=== PATIENT | female | born 1955 | race Caucasian/White ===

== ENCOUNTER → 2020-12-12 07:56 | Outpatient (CLI) | payer MEDICARE, OTHER, SELFPAY ==
[2020-12-12 10:00] LABS: COVID19 -Nasal RAPID Negative (Negative)
== END ==
PROVIDERS: Visit Provider Obstetrics & Gynecology
DX: Z01.812 Encounter for preprocedural laboratory examination (principal); Z20.822 Contact with and (suspected) exposure to COVID-19
CPT/HCPCS: 87635

== ENCOUNTER 2020-12-12 09:45 | Day surgery (SDC) | payer MEDICARE, OTHER, SELFPAY ==
[2020-12-07 10:41] VITALS: BMI 32.8
[2020-12-12] VITALS (7 sets, daily range): BP systolic 129–169; BP diastolic 57–86; PULSE 48–69; RESP 11–16; TEMP 36.9–37; O2SAT 96–99; BMI 33.7
--- NOTE | 2020-12-12 | PATH_ITS ---
[facility] Accession Number: [id number] . 01 Material submitted: . vagina - VAGINAL POLYP . 02 Diagnosis: Vaginal Polyp: Polyp contains a benign, inflamed, predominantly squamous-lined cyst with calcifications and acellular debris (cyst is approximately 2 cm in greatest dimension). Small regions of the cyst lining contain focal cytologic atypia suggestive of, but not diagnostic of, low grade squamous intraepithelial lesion / VAIN-1. These findings are not identified on the polyp surface. Please see comment. [facility] 12/15/2020 1426 Local . 02 Comment: The polyp (approximately 3.0 cm) contains a cyst (approximately 2.0 cm). The cyst lining demonstrates squamous metaplasia with small, patchy foci suggestive of possible tubal epithelium. There is inflammation and reactive change in the cyst lining with focal cytologic atypia suggestive of, but not diagnostic of, low grade squamous intraepithelial lesion / VAIN-1. These cytologic changes are very focal in the cyst lining and are not identified on the actual polyp surface. . The differential diagnosis is broad and includes a Mullerian cyst, a Bartholin gland cyst, and an epithelial inclusion cyst and, to some degree, depends on anatomic location and clinical presentation. . As part of routine engagement quality consultant, this case was also reviewed by Dr. Mir, who agrees with the interpretation. . 02 Electronically signed: . Radha Morrison MD, Pathologist NPI- [id number] . 01 Gross description: . The specimen is received in formalin, labeled vaginal polyp and consists of a 3.0 x 2.5 x 1.8 cm figueroa-pink mucosal polyp. The margin is inked blue. The specimen is serially sectioned and entirely submitted in cassettes A1-A6. ([id number]) /MRV 12/13/2020 1040 [facility] . 02 Pathologist provided ICD-10: N75.0 . 02 CPT . 832728 Performed at: 01 [facility] [address] [address], [place], [place] [id number] MD Anirudh Rome MD Phone: [phone] Performed at: [id number] [place], [place] [id number] MD Abbey Dash MD Phone: [phone]
[2020-12-12] MEDS: LACTATED RINGERS 1,000 ML 100 ML IV (10:29)
--- NOTE | 2020-12-12 11:17 | SUR.OPER ---
Lithotomy on padded OR bed, head on pillow, arms secured on padded arm boards at <90 degrees abduction. Legs secured in padded yellow fins stirrups.
[2020-12-12] MEDS: CEFAZOLIN 1 GM VIAL 2 GM IV (11:20)
[2020-12-12] MEDS: BUPIVACAINE 0.5% W/ EPI (PF) 30 ML VIAL INJ (11:22)
--- NOTE | 2020-12-12 11:38 | P.HP_ITS ---
History of Present Illness History of Present Illness Date Patient Seen: 12/12/20 Time Patient Seen: 10:45 Chief complaint: [facility] Narrative: Patient is a 65-year-old 1 para 1 who presents for a a vaginal lump excision. Patient History Medical History (Updated 12/10/20 @ 22:26 by Suzy Duarte) Chronic back pain Foot pain Hypertension Osteopenia Peripheral neuropathy Surgical History (Updated 11/21/20 @ 14:49 by Valerie Atkins MD) History of section Hx laparoscopic cholecystectomy Family & Social History Social History: household members spouse Tobacco & Substance use: Smoking Status Never smoker alcohol intake frequency a few times a month Substance Use Type does not use Meds Home Medications and Allergies Home Medications Medication Instructions Recorded Confirmed Type lisinopril 50 mg PO DAILY 11/21/20 12/12/20 History oxycodone 5 mg PO Q4H PRN #7 tab 12/12/20 Rx Allergies Allergy/AdvReac Type Severity Reaction Status Date / Time No Known Drug Allergies Allergy Unverified 11/21/20 14:29 Exam Vital Signs (past 8 hours): - 12/12/20 10:31 12/12/20 11:31 Temperature 98.5 F 98.6 F Pulse Rate 69 60 Respiratory Rate 16 12 Blood Pressure 169/86 H 142/84 H Pulse Oximetry 99 96 Oxygen Delivery Method Room Air Narrative Exam Narrative: HEENT: No thyromegaly, no anterior cervical or supraclavicular lymphadenopathy. Lungs:Clear to auscultation bilaterally, no wheezes. Cardiovascular: Regular rate and rhythm, no murmurs, rubs, or gallops. Abdomen: Well-healed Pfannenstiel scars. No hepatosplenomegaly. No masses palpable. External genitalia: Normal Vagina: 2.5 cm x 2.5 cm right vaginal wall polyp Cervix: Normal Bimanual exam: 5 Week size uterus. Mobile. Assessment & Plan Assessment & Plan narrative: Assessment: 65-year-old 1 para 1 with a right vaginal wall polyp Plan: Excision of right vaginal wall polyp The risks, benefits, and alternatives to the procedure were explained to the patient. The risks including bleeding and infection. She understands these risks and agrees to proceed. A full par Q was held and consent form was signed COVID-19 COVID-19 status: Negative Result date/Date tested (Pos, Neg/Pending): 12/12/20 Time Spent With Patient Time with patient: less than 15 minutes
[2020-12-12] MEDS: OXYCODONE IR 5 MG TABLET PO (11:50)
[2020-12-12] MEDS: ACETAMINOPHEN 325 MG TABLET 975 MG PO (11:51)
--- NOTE | 2020-12-12 12:20 | PM.PREOP ---
Pre-operative Note COVID-19 COVID-19 status: Negative Result date/Date tested (Pos, Neg/Pending): 12/12/20 Interval Note History & Physical reviewed/Exam performed by Physician: Yes Changes to H&P: No H&P completed within 30 days and has changed as indicated here:: 12/12/20
--- NOTE | 2020-12-12 12:20 | PM.GYNOP.1 ---
Operative Date/Time/Diagnoses Date of procedure: 12/12/20 Time of procedure: 12:21 Pre-op diagnosis: Right vaginal wall polyp Post-op diagnosis: same Procedure & Clinicians Procedure: Procedures Operation Date: 12/12/20 10:45 Actual Procedures Side Surgeon p Excision Vaginal of Mass Valerie Atkins MD Indications: Right vaginal wall polyp Surgeon: Valerie Atkins Anesthesia Type: General (LMA) and Local Operative Notes Findings: 3.5 cm x 2.5 cm polyp on a stalk originating from the right vaginal wall, approximately half way back towards the cervix Closure Type: primary Specimen(s): other (Vaginal wall polyp) Estimated blood loss (mL): 2 Blood products transfused: none Procedure in detail: After informed consent was obtained, patient was taken to the operating room where she was placed in the dorsal supine position. After adequate LMA general anesthesia was achieved, she was placed in the dorsal lithotomy position, and prepped and draped in the usual sterile fashion. A time-out was performed. A bivalve speculum was placed into the vagina. There was a 3.5 x 2.5 cm vaginal polyp on a stalk originating from the right vaginal wall. 6 cc of 0.5% Marcaine with epinephrine were injected at the base of the stalk. Using the Bovie, the polyp was excised at the base. The Bovie was used for hemostasis on the vaginal wall. The bivalve speculum was removed from the vagina. Sponge, lap, and instrument counts were correct x2. The patient tolerated the procedure well, and was taken to PACU in stable condition. Complications: none Post-operative Condition: stable Disposition: PACU Plan for aftercare: Home after recovery
== END 2020-12-12 12:28 | disposition home or self-care (01) ==
PROVIDERS: Referring Provider Obstetrics & Gynecology; Visit Provider Obstetrics & Gynecology
PROC: (CPT 57135; principal; 2020-12-12 10:45)
DX: N89.8 Other specified noninflammatory disorders of vagina (principal); I10 Essential (primary) hypertension; Z20.822 Contact with and (suspected) exposure to COVID-19
CPT/HCPCS: 57135; 87635; C9803; J0690; J1100; J2250; J2405; J2704; J3010

== ENCOUNTER → 2021-01-10 10:13 | Outpatient (CLI) | payer MEDICARE, OTHER, SELFPAY ==
[2021-01-10 20:48] LABS: Add Manual Diff / Slide Review NO; Basophils Absolute Auto 100 /uL (0-100); Basophils Percent Auto 1.3 % (0-2); Eosinophils Absolute Auto 200 /uL (0-450); Hematocrit 38.6 % (36-46); Hemoglobin 12.8 g/dL (12.0-16.0); Lymphocytes Absolute Auto 2400 /uL (1100-4500); Mean Corpuscular Hemoglobin 30.9 PG (26-34); Mean Corpuscular Volume 93.5 fL (80-100); Monocytes Absolute Auto 500 /uL (0-900); Monocytes Percent Auto 6.9 % (3-14); Neutrophils Absolute Auto 3700 /uL (1500-7000); Neutrophils Percent Auto 53.8 % (50-75); Platelet Count 327 X10^3/uL (150-400); Red Blood Cell Count 4.13 X10^6/uL (4.0-5.2); Red Cell Distribution Width 12.8 % (11.6-14.8); White Blood Cell Count 6.8 X10^3/uL (4.5-11.0)
[2021-01-10 21:02] LABS: Alanine Aminotransferase 43 IU/L (<35); Albumin 3.9 g/dL (3.5-5.0); Albumin Globulin Ratio 1.3 (1.0-2.8); Alkaline Phosphatase 84 U/L (38-126); Aspartate Aminotransferase 33 IU/L (14-36); BUN Creatinine Ratio 24.3 (6-22); Bilirubin Total 0.6 mg/dL (0.2-1.3); Blood Urea Nitrogen 17 mg/dL (7-17); Calcium 9.7 mg/dL (8.4-10.2); Carbon Dioxide 24 mmol/L (22-32); Chloride 106 mmol/L (98-107); Cholesterol 231 mg/dL (140-199); Estimated Glomerular Filt Rate > 60.0 mL/min (>60); Globulin 2.9 g/dL (1.7-4.1); Glucose 114 mg/dL (80-110); HDL Cholesterol 63 mg/dL (40-60); HEMOLYSIS < 15 (0-50); LDL Cholesterol Calculated 147 mg/dL (<100); Potassium 4.3 mmol/L (3.4-5.1); Sodium 137 mmol/L (137-145); Total Protein 6.8 g/dL (6.3-8.2); Triglycerides 107 mg/dL (35-150)
[2021-01-10 21:06] LABS: Creatinine Urine Random 114.9 mg/dL
[2021-01-10 21:07] LABS: Microalbumi Creatinin Ratio Ur 20.8 ug/mg CR (<30); Microalbumin Urine Random 2.4 mg/dL (0-1.6)
[2021-01-10 21:22] LABS: Hemoglobin A1C% w Est Avg Glu 5.7 % (4.0-6.0)
[2021-01-10 21:51] LABS: Vitamin B12 > 1000 pg/mL (239-931)
== END ==
PROVIDERS: PCP Physician Assistant; Visit Provider Physician Assistant
DX: G62.9 Polyneuropathy, unspecified (principal); R73.01 Impaired fasting glucose; I10 Essential (primary) hypertension
CPT/HCPCS: 80053; 80061; 82043; 82570; 82607; 83036; 85025

== ENCOUNTER → 2022-01-04 12:46 | Outpatient (CLI) | payer MEDICARE, OTHER, SELFPAY ==
--- NOTE | 2022-01-04 | DI.CT.S_ITS ---
PROCEDURE: CT LUMBAR SPINE WO CON INDICATIONS: SPINAL STENOSIS OF LUMBAR REGION TECHNIQUE: Noncontrast 3 mm thick sections acquired from the T12 level to the sacrum. Sagittal and coronal reformats were constructed. In this patient direct axial 0.8 mm images were reformatted. For radiation dose reduction, the following was used: automated exposure control. COMPARISON: [facility] Outside Film, MR, MR LUMBAR SPINE WITHOUT CONTRAST, 06/26/2021, 18:30. [facility] Outside Film, RG, SPINE LUMB BENDING MIN 4VW, 08/22/2021, 14:14. FINDINGS: Image quality: Excellent. Bones: No acute vertebral body compression fractures. No suspicious lytic or blastic bony lesions. No pars defects. T12-L1: Normal. L1-L2: Normal. L2-L3: Normal. L3-L4: The disc height is well preserved. Moderate generalized disc bulge is seen. Moderate facet joint hypertrophy is seen. Mild to moderate bilateral neural foraminal narrowing can be seen. Moderate central canal narrowing is seen. L4-L5: The disc height is well preserved. Moderate generalized disc bulge is seen. There is a superimposed central disc protrusion. Mild bilateral neural foraminal narrowing is seen. Moderate central canal narrowing is seen. L5-S1: Mild retrolisthesis is seen at this level. At least moderate loss of disc height and disc signal can be seen. Vacuum disc phenomenon is seen at this level. Bridging endplate osteophytes are seen on the right and on the left. Posteriorly projected endplate osteophytes are seen. Moderate generalized disc bulge is seen. Moderate bilateral neural foraminal narrowing is seen. Mild central canal narrowing is seen. Soft tissues: No retroperitoneal masses or hematomas. Visualized aorta is normal in caliber. Atherosclerotic calcification is noted. Bilateral kidney peripelvic cysts can be seen. A normal appendix is incidentally noted. IMPRESSION: Multiple levels of lumbar spine degenerative change are seen, which are worst at the L5-S1 level. The degenerative changes are similar to the prior outside MRI examination. Dictated by: Prasanna Rosado M.D. on 01/04/2022 at 12:32 Approved by: Prasanna Rosado M.D. on 01/04/2022 at 12:36
== END ==
PROVIDERS: PCP Physician Assistant; Referring Provider Orthopaedic Surgery Orthopaedic Surgery of the Spine; Visit Provider Orthopaedic Surgery Orthopaedic Surgery of the Spine
DX: M47.817 Spondylosis without myelopathy or radiculopathy, lumbosacral region (principal); M47.816 Spondylosis without myelopathy or radiculopathy, lumbar region; M48.061 Spinal stenosis, lumbar region without neurogenic claudication
CPT/HCPCS: 72131

== ENCOUNTER → 2022-01-10 11:09 | Outpatient (CLI) | payer MEDICARE, OTHER, SELFPAY ==
[2022-01-10 19:18] LABS: Add Manual Diff / Slide Review NO; Basophils Absolute Auto 100 /uL (0-100); Basophils Percent Auto 1.1 % (0-2); Eosinophils Absolute Auto 100 /uL (0-450); Eosinophils Percent Auto 1.6 % (2-4); Hematocrit 37.6 % (36-46); Hemoglobin 12.9 g/dL (12.0-16.0); Lymphocytes Absolute Auto 2800 /uL (1100-4500); Lymphocytes Percent Auto 41.7 % (25-40); Mean Corpuscular HGB Conc 34.5 % (30-36); Mean Corpuscular Hemoglobin 31.7 PG (26-34); Monocytes Absolute Auto 500 /uL (0-900); Monocytes Percent Auto 6.9 % (3-14); Neutrophils Absolute Auto 3200 /uL (1500-7000); Neutrophils Percent Auto 48.7 % (50-75); Platelet Count 304 X10^3/uL (150-400); Red Blood Cell Count 4.08 X10^6/uL (4.0-5.2); Red Cell Distribution Width 12.7 % (11.6-14.8); White Blood Cell Count 6.6 X10^3/uL (4.5-11.0)
[2022-01-10 19:26] LABS: BUN Creatinine Ratio 26.2 (6-22); Blood Urea Nitrogen 16 mg/dL (7-17); Calcium 9.2 mg/dL (8.4-10.2); Carbon Dioxide 28 mmol/L (22-32); Chloride 104 mmol/L (98-107); Estimated Glomerular Filt Rate > 60 mL/min (>60); Glucose 111 mg/dL (80-110); HEMOLYSIS 16 (0-50); Potassium 4.9 mmol/L (3.4-5.1); Sodium 139 mmol/L (137-145)
== END ==
PROVIDERS: PCP Physician Assistant; Visit Provider Physician Assistant
DX: R73.01 Impaired fasting glucose (principal); Z01.818 Encounter for other preprocedural examination
CPT/HCPCS: 80048; 85025

== ENCOUNTER → 2022-02-01 07:11 | Outpatient (CLI) | payer MEDICARE, OTHER, SELFPAY ==
[2022-02-01 20:11] LABS: COVID19 - ORCAS (NP or Nasal) Negative (Negative)
== END ==
PROVIDERS: PCP Physician Assistant; Visit Provider Family Medicine
DX: Z20.822 Contact with and (suspected) exposure to COVID-19 (principal); Z01.812 Encounter for preprocedural laboratory examination
CPT/HCPCS: C9803; U0003

== ENCOUNTER 2022-02-04 07:35 | Inpatient (IN) | payer MEDICARE, OTHER, SELFPAY ==
[2022-01-29 13:36] VITALS: BMI 30.2
[2022-02-04] VITALS (13 sets, daily range): BP systolic 121–153; BP diastolic 64–87; PULSE 73–109; RESP 12–20; TEMP 36–36.7; O2SAT 96–98; BMI 30.2
[2022-02-04] MEDS: LACTATED RINGERS 1,000 ML 42 ML IV ×2 (08:07→10:50)
[2022-02-04] MEDS: ACETAMINOPHEN 325 MG TABLET 650 MG PO ×2 (08:07→23:02)
--- NOTE | 2022-02-04 09:43 | PM.PREOP ---
Pre-operative Note COVID-19 COVID-19 status: Negative Result date/Date tested (Pos, Neg/Pending): 02/03/22 Criteria for continued procedure: Expected advancement of disease process, Possibility delay results in more complex future surgery or treatment, Increased loss of function, Continuing or worsening of significant or severe pain and Deterioration of the patient's condition or overall health Interval Note History & Physical reviewed/Exam performed by Physician: Yes Changes to H&P: No H&P completed within 30 days and has changed as indicated here:: PMHx and PSHx updated as below: HISTORY ITEM ONSET Chronic back pain Foot pain HTN (hypertension) Osteopenia Peripheral neuropathy Sciatica LLE HISTORY ITEM ONSET History of section History of gynecologic surgery Excision of vaginal mass 12/12/20 Hx laparoscopic cholecystectomy RELATIVE PROBLEM ONSET AGE COMMENT No Data for this History Type. SOCIAL HISTORY ITEM COMMENT household members spouse Smoking Status Never smoker alcohol intake current
[2022-02-04] MEDS: CEFAZOLIN 2 GM/20 ML SYRINGE IV ×2 (10:25→18:24)
--- NOTE | 2022-02-04 10:43 | SUR.OPER ---
Prone on spine table, head in foam head support, padded chest and pelvic supports, gel pad at knees, lower legs supported by pillows; nipples, genitalia and toes free of pressure, arms secured on foam padded arm boards at <90 degrees abduction. Tape over blanket at thigh secured to table. POSITION APPROVED BY SURGEON AND ANESTHESIA
[2022-02-04] MEDS: BUPIVACAINE 0.5% (PF) 30 ML, EPINEPHrine 0.15 MG INJ (10:54)
[2022-02-04] MEDS: BUPIVACAINE LIPOSOME 266 MG/20 ML VIAL INJ (10:55)
--- NOTE | 2022-02-04 13:12 | P.OP_ITS ---
Operative Date/Time/Diagnoses Date of procedure: 02/04/22 Time of procedure: 10:00 Pre-op diagnosis: 1. L4-5, L5-S1 spinal stenosis 2. L4-5, L5-S1 spondylosis with radiculopathy Post-op diagnosis: same Procedure & Clinicians Procedure: 1. L4-5, L5-S1 Postero-lateral and posterior interbody fusion 2. L4-5, L5-S1 interbody cage placement. 3. L4-5, L5-S1 decompressive laminectomy with bilateral facetecomies 4. L4-5, L5-S1 Posterior segmental instrumentation 5. Belle of bone marrow from iliac crest 6. Utilization of microsurgical technique and operating microscope 7. Utilization of robotic assisted navigation Same procedure as scheduled: Yes Indications: Patient has been having chronic back pain and worsening lumbar radiculopathy. Patient failed multiple conservative management with worsening pain weakness and numbness in her lower extremity. Patient has been having difficulty performing activity of daily living. After discussing risks benefits of treatment options, patient elected proceed with surgery. Surgeon: Antonino Cherry Hosiery Pairer: Alycia Stephens Click Yes if Unassisted: No Anesthesia Type: General Operative Notes Closure Type: primary Specimen(s): none sent Prosthetic devices, grafts, tissues, transplants, or devices: Globus CREO MIS screws, Rise cages Applied: catheter Estimated Blood Loss (mL): 100 Blood products transfused: none Procedure in detail: Patient was seen in the preoperative area. Risks and benefits of the surgery was discussed with the patient. Informed consent was obtained from the patient and placed in the chart. Surgical site was marked. Patient was taken to the operative room. General anesthesia was administered. Prophylactic antibiotic was given to the patient less than 30 min before the incision was made. Patient was placed into a prone position on the Kevin table. Patient's back was then prepped and draped in the sterile fashion. Time-out was performed at this time. After patient was prepped and draped, patient's PSIS was palpated and marked bilaterally. Small 1 cm incision was made over the PSIS for placement of the reference probes. Two trocar was placed into the PSIS 1 on each side. The reference probe was attached to the trocar of the reference apparatus. At this time the C-arm imaging was used to confirm AP and lateral of L4-L5, L5- S1 vertebrae and merged the C-arm imaging using the [employer] robotic navigation system with the CT of the lumbar spine. After successful merging was completed and confirmed, skin marker was used to shivani out the skin incision using the [employer] robotic arm. Bilateral incision was made at this time. Pre templated trajectory was used and guided using the [employer] robotic navigation system for bilateral L4, L5, S1 pedicle screw placement. This was done by using the robotic arm to guide the high-speed bur to make a cortical entry point. Next a drill was placed also using the robotic arm and guided using the navigation system drilling partially through bilateral L4, L5 and S1 pedicles. Next L4, L5, S1 pedicle screws it was pre templated and measured was placed onto the power snaker tractor driver and inserted into the pedicles bilaterally. After all 6 screws were placed C-arm imaging was taken of both AP and lateral to confirm the placement. Excellent placement of the screws were confirmed and a matched precisely with the pre planned screw placement using the navigation system. MARs retractor was inserted using [employer] guidence. Globus MARS retractors was placed inside the incision and docked onto the L4 and L5 lamina. Using microsurgical technique and operating microscope, a L4, L5 laminectomy and L4-5, L5-S1 facetectomy was performed using a Kerrison rongeur. Patient was found have severe lateral recess and neural foramen stenosis which was fully decompressed after the laminectomy facetectomy. More than 75% of the facets were removed during the process of decompression rendering L4-5, L5-S1 level grossly unstable and required a fusion procedure at the same time. The disc space at L4-5, L5-S1 was identified, and a total diskectomy was performed at L4- 5, L5-S1 level. The endplates were decorticated using a rasp and shaver. The total diskectomy and decortication was performed at L4-5, L5-S1 level in order to to accomplish a L4-5, L5-S1 fusion. The local bone from the laminectomy and facetectomy was saved for local bone grafting. After the total diskectomy and decortication was completed, Trifecta bone graft material was combined with local bone that was harvested earlier. At this time, a separate skin is incision was made over the iliac crest. A Jamshidi needle was inserted into the iliac crest through a separate skin incision. 5 cc of bone marrow aspiration was obtained through the separate skin incision using a Jamshidi needle from the iliac crest. The bone marrow aspiration was combined with local bone and the Trifecta bone grafting material. The bone grafting material was placed into the L4-5, L5-S1 interbody space along with a expandable cage. The cage was expanded to its maximum height using the torque limiting screwdriver. The disc preparation as well as the cage insertion were also performed under navigation guidance. After the cage was placed, AP and lateral C-arm imaging was taken to confirm placement of the cage and excellent position was confirmed. Globus MARS retractor was inserted and docked onto the L4-5, L5-S1 posterolateral gutter on the right side. Using the power drill, posterior- lateral decortication was performed at L4-5, L5-S1 level until bleeding cortical bone was identified. The remaining bone grafting material was placed into the L4-5, L5-S1 posterior lateral gutter he order to accomplish posterolateral fusion at the L4-5, L5-S1 level. At this time the tulips were attached to the L4, L5, S1 pedicle screw shanks. After measuring the length of the rods, they were inserted into the tulips of the pedicle screws and locked in place using locking caps and torque limiting screwdriver bilaterally. Total 6 caps and 2 titanium rods was used in order to complete the posterior instrumentation construct. After all the hardware was placed, and confirmed with AP and lateral C-arm imaging, the wound was then irrigated with sterile normal saline and packed with Ray-Veronica gauze for 3 min to accomplish hemostasis. After the gauze was removed the deep fascia was closed with #1 Vicryl suture. The subcutaneous layer was closed with 2-0 Vicryl. The skin was closed with skin dmitry. Patient tolerated the procedure well. There were no complications. Neuro monitoring system was used to monitor patient's neurologic status throughout entire procedure. There was no disturbance of the neural monitoring signals throughout the case. Complications: none Post-operative Condition: stable Disposition: PACU Plan for aftercare: Admit to inpatient hospital
[2022-02-04] MEDS: SODIUM CHLORIDE 0.9% 1,000 ML 100 ML IV (14:42)
--- NOTE | 2022-02-04 17:21 | PC.NURSE ---
Pt arrived to the unit around 1425 from OR. Pt is AxOx4, needs 1-2 person assistance but pt hasn't gotten up yet. VSS, pt denies pain. No skin issues except incision site and it has post op dressing. Drsg C/D/I. Pt has low appetite. Pt has rico catheter and it is draining yellow urine. No other changes.
[2022-02-04] MEDS: DOCUSATE 100 MG CAPSULE PO (20:44)
[2022-02-04] MEDS: VIT C/E/ZN/COPPR/LUTEIN/ZEAXAN CAPSULE 1 CAP PO (20:45)
[2022-02-04] MEDS: SENNOSIDES 8.6 MG TABLET 17.2 MG PO (20:45)
[2022-02-04] MEDS: hydrOXYzine pamoate 25 MG CAPSULE PO (23:02)
[2022-02-05] VITALS (8 sets, daily range): BP systolic 99–144; BP diastolic 35–66; PULSE 65–87; RESP 15–18; TEMP 37–38.7; O2SAT 95–100
[2022-02-05] MEDS: SODIUM CHLORIDE 0.9% 1,000 ML 100 ML IV (00:41)
[2022-02-05] MEDS: CEFAZOLIN 2 GM/20 ML SYRINGE IV (02:27)
[2022-02-05 05:58] LABS: Hematocrit 31.3 % (36-46); Hemoglobin 10.8 g/dL (12.0-16.0)
--- NOTE | 2022-02-05 06:35 | PC.NURSE ---
Pt declining pain medications, only took tylenol and vistaril. Pt was reposition twice during the shift (declined being turn more than that). CMS is intact as well as dressing to back incision. IVF discontinue this am. Pt concern about getting out of bed this morning with PT and about seating in her car for more than 1 hour due to [place] ride.
--- NOTE | 2022-02-05 07:42 | P.PN_ITS ---
Subjective Subjective Date Patient Seen: 02/05/22 Time Patient Seen: 07:42 Interval history: Pain is moderate to severe. Denies fever chills. No nausea vomiting. Exam Vital Signs (past 8 hours): - 02/05/22 03:00 Temperature 98.6 F Pulse Rate 73 Respiratory Rate 18 Blood Pressure 136/63 Pulse Oximetry 96 Oxygen Flow Rate 0 Oxygen Delivery Method Room Air Oxygen Flow Rate 0 Narrative Exam Narrative: 66-year-old female resting comfortably in bed in no apparent distress. D ressing is Clean, dry, intact. . Motor functions intact bilateral lower extremities. Sensation is grossly intact to light touch bilateral lower extremities. Const General: comfortable Resp Effort & Inspection: normal respiratory effort and able to speak in complete sentences Objective Labs Result Diagrams: 02/05/22 05:22 Labs: Laboratory Results - last 24 hr 02/05/22 05:22 Hgb 10.8 L Hct 31.3 L PFSH Medical History Chronic back pain Foot pain HTN (hypertension) Osteopenia Peripheral neuropathy Sciatica Surgical History History of section History of gynecologic surgery (12/12/20) Hx laparoscopic cholecystectomy Social History household members: spouse Smoking Status: Never smoker alcohol intake: current Assessment & Plan Post-op Postoperative Procedures: Procedures Operation Date: 02/04/22 09:15 Actual Procedure Side Surgeon p L4-5, L5-S1 TLIF w. posterior instrumentation -Robot Antonino Cherry MD Postoperative day: 1 Postoperative status: doing well and marginal pain control Postoperative plan: routine post-op care Postoperative plan narrative: Mobilize with physical therapy, limit bending, lifting, twisting multimodal pain management disposition, home 1-2 days Quality VTE Deep Vein Thrombosis/Pulmonary Embolism Present on Admission: No
[2022-02-05] MEDS: ACETAMINOPHEN 325 MG TABLET 650 MG PO ×3 (09:03→22:06)
[2022-02-05] MEDS: DOCUSATE 100 MG CAPSULE PO (09:03)
[2022-02-05] MEDS: lisinopriL 10 MG TABLET PO (09:04)
[2022-02-05] MEDS: VIT C/E/ZN/COPPR/LUTEIN/ZEAXAN CAPSULE 1 CAP PO ×2 (09:04→19:57)
--- NOTE | 2022-02-05 10:55 | OT.IPNOTE ---
Pt just got back in bed with nursing, dizzy and low BP per nursing. Pt not wanting to get up at this time. Able to get prior level of care and home set-up from the pt. To check on the pt later.
--- NOTE | 2022-02-05 10:58 | CM.DPNOTE ---
Discharge Planning Note: Case received, EMR reviewed. Met with patient in her room, introduced self and role. Payer: Medicare, [facility] PCP: Brittany Stiles 66 year old female who underwent TLIF yesterday, 02/04/22, by Dr Cherry. She is sitting on the side of the bed dangling her legs when this DCP entered. She speaks softly and states she can't move legs although she is. PT will work with her today. She and her spouse live on [address] and are retired. She states she is normally independent in ADLs and drives. Plan: Per surgery notes she will be discharged home in 1-2 days. Follow for needs. Gladys Pratt RN/DCP
--- NOTE | 2022-02-05 11:00 | PT.IIE ---
Current Diagnoses Other spondylosis with radiculopathy, lumbar region (02/04/22) Spinal stenosis, lumbar region with neurogenic claudication (02/04/22) Surgery Performed Operation Date: 02/04/22 09:15 Actual Procedures p L4-5, L5-S1 TLIF w. posterior instrumentation -Robot - Antonino Cherry MD Surgical History (Last Reviewed 02/05/22 @ 07:43 by Andrea Maya PA-C) History of section History of gynecologic surgery (12/12/20) Hx laparoscopic cholecystectomy Medical History (Last Reviewed 02/05/22 @ 07:43 by Andrea Maya PA-C) Chronic back pain Foot pain HTN (hypertension) Osteopenia Peripheral neuropathy Sciatica Physical Therapy Inpatient Evaluation/Re-Eval M1 PT/OT-IP Prior Functional Status Start: 02/05/22 12:05 Freq: NEEDED Status: Active Protocol: Document 02/05/22 11:00 AB (Rec: 02/05/22 12:58 [facility] Medical Review Prior Functional Status Medical History Reviewed Yes Communication able to make needs known but needs time to answer questions or follow directions Mobility and Gait pt stated that she is modified independent with all mobilities and ambulation without AD but occasionally uses walkign sticks for outdoor mobility Social History Household Members spouse Living Arrangements Apartment/Condo Number of Floors (Floors) Two Floors Number of Stairs To Enter/Railing? pt stays on main level of the house 4 steps wide bilateral rails Home Environment Standard Height Toilet,Walk in Shower Home Equipment Hand Held Shower M2 PT-IP Current Condition Start: 02/05/22 12:05 Freq: NEEDED Status: Active Protocol: Document 02/05/22 11:00 AB (Rec: 02/05/22 12:58 AB [email or web address]) Physical Therapy Current Condition Current Condition Evaluation Date 02/05/22 Treatment Diagnosis s/p L4-5, L5S1 TLIF; difficulty in walking Onset Date 02/04/22 M3 PT-IP Subjective Start: 02/05/22 12:05 Freq: NEEDED Status: Active Protocol: Document 02/05/22 11:00 AB (Rec: 02/05/22 12:58 AB [email or web address]) Subjective Physical Therapy Visit Type Type Initial Evaluation Visit Start Time 11:00 Visit Stop Time 11:30 Total Visit Minutes 30 Number of DECKHAND FISHING VESSEL Visits 0 Physical Therapy Visit Comments Patient Comments agreeable to do PT M4 PT-IP Mobility and Gait Start: 02/05/22 12:05 Freq: NEEDED Status: Active Protocol: Document 02/05/22 11:00 AB (Rec: 02/05/22 12:58 AB [email or web address]) PT-Bed Mobility Assessment Rolling Type of Rolling Log Rolling Level of Assist Maximal Assistance Supine to Sit Supine to Sit Maximum Assistance,1 Person Assistance Sit to Supine Sit to Supine Maximum Assistance,1 Person Assistance PT-Transfer Assessment Sit to and From Stand Sit to and from Stand Maximum Assistance,1 Person Assistance Equipment Transfer Assistive Device Gait Belt,Front Wheeled Walker Orthotic/Prosthetic Devices or Brace: No Comments Mobility Comments educated pt regarding back precautions and log roll bed mobility. BP in supine: 99/50 completed supine to sit max A and max cues. Able to sit on EOB min A. no c/o dizziness/ lightheaded/nausea. pt needs one step cues with all tasks. BP in sittin/58. completed sit to stand max A and max cues. Very unsteady initial standing with posterior trunk lean and (+) BLE shaking. assisted pt to sit back down. NAC came in to assist. completed sit to stand again max A and able to stand with max A and max cues. No c/o dizziness/ lightheadedness. attempted to obtain BP in standing but pt has to sit back down. max A for controlled descent. BP in stting after standin/47. assisted pt to supine max A and max cues. total A x 2 for positioning in bed. call light and table placed within reach. BP at end of PT session: 104/44. informed nurse regarding BP. Gait Assessment Comments Gait Comments unable at this time PT-Balance Assessment Sitting Balance and Reactions Static Sitting Balance Ability Fair Dynamic Sitting Balance Ability Poor Standing Balance and Reactions Static Standing Balance Ability Poor Dynamic Standing Balance Ability Poor Device Used FWW M5 PT-IP Objective Assessments Start: 02/05/22 12:05 Freq: NEEDED Status: Active Protocol: Document 02/05/22 11:00 AB (Rec: 02/05/22 12:58 AB [id number]) Orientation Orientation/Cognition Level of Alertness Alert Orientation Name,Age,Situation Language Function Ability No Deficits Noted Safety Awareness Decreased Safety Awareness Memory Description Short Term Impaired Gross Range of Motion Lower Extremity ROM Assessment Within Functional Limits Strength Lower Extremity Strength Assessment Bilaterally Impaired Comments Strength Comments RLE: 3+/5 LLE: 3/5 Coordination Assessment Gross Coordination Gross Coordination WNL Sensation Assessment Sensation Gross Sensation Right LE Impaired,Left LE Impaired Sensation Description Numbness Comments Sensation Comments c/o numbness on BLE from hips down to feet Muscle Tone Muscle Tone WNL Yes M6 PT-IP Treatment Start: 02/05/22 12:05 Freq: NEEDED Status: Active Protocol: Document 02/05/22 11:00 AB (Rec: 02/05/22 12:58 [id number]) Physical Therapy Treatment Education Education Provided Precautions,Weight Bearing Status,Post-Op Packet,Safety M7 PT-IP Assessment and Plan Start: 02/05/22 12:05 Freq: NEEDED Status: Active Protocol: Document 02/05/22 11:00 AB (Rec: 02/05/22 12:58 [email or web address]) PT Summary Assessment and Plan Potential Rehabilitation Potential Fair Status of Condition at Evaluation Evolving Summary Impairments Pain,ROM,Strength,Balance, Coordination,Sensation,Tone, Cognition,Bed Mobility, Transfers,Gait,Activity Tolerance Assessment Summary pt requiring max A and max cues and unable to complete a transfer or ambulate at this time. BP with decrease in BP in standing to 89/44 but also presents with BLE weakness and numbness affecting mobility. at this time, pt may require SNF rehab to improve strength and functional mobility independence. will continue to assess progress. Goals Bed Mobility Goal Standby Assistance Transfer Goal Standby Assistance,Front Wheeled Walker Gait Goal Standby Assistance,Front Wheel Walker Gait Distance 200 Other Goals up/down 4 steps 1 rail SBA Days to Meet Goals 5 Frequency of Treatment Frequency Of Treatment Twice a Day Treatment Plan Physical Therapy Treatment Plan Bed Mobility Training,Transfer Training,Gait Training, Therapeutic Exercise,Balance Retraining,Post Op Education, Discharge Planning,Hot or Cold Pack,Neuromuscular Re-ed, Coordination Retraining,Manual Therapy Precautions Lumbar Precautions Log Roll,No Twisting,Limit Bending,Lifting Restriction of 10 lbs,Gait Belt above Incisional Area Recommendations To Nursing Amount of Assist Needed PT/OT Assist Only Discharge Recommendations PT Discharge Recommendations Home with / Assist Available,Home Health,SNF Rehab,Home vs SNF Transportation Needs at Discharge Private Vehicle,Wheelchair/ Cabulance
--- NOTE | 2022-02-05 11:15 | OT.IPNOTE ---
Pt just got back on bed with nursing, got a little dizzy and low BP, pt requesting to be seen later for OT eval. Able to get prior level of care and history from the pt.
--- NOTE | 2022-02-05 12:44 | OT.IPNOTE ---
Attempted to see pt for OT again, pt asleep and per nursing having low BP to hold pt at this time.
--- NOTE | 2022-02-05 13:10 | CM.DANOTE ---
Addendum entered by Halina Pratt R.N. 02/05/22 15:37: Discharge Planning cont. Spoke with [facility] at [facility], they can accept in 2 days but new requirement is that she has a 2nd booster which she would have to receive here. I notified patient of this and she states last booster she became hypotensive. Called [facility], spoke with [facility] and they could possibly admit in a few days without a 2nd booster if they have a private room to quarantine patient for a week which is standard. Faxed clinicals. [facility]. P: Follow up with SNFs, (or if patient to return home) follow patient progress with PT. DESIRE Original Note: Initial Discharge Planning Note: Case received, EMR reviewed. Met with patient in her room, introduced self and role. Payer: Medicare, [facility] PCP: Brittany Stiles 66 year old female who underwent TLIF yesterday, 02/04/22, by Dr Cherry. She is sitting on the side of the bed dangling her legs when this DCP entered. She speaks softly and states she can't move legs although she is. PT will work with her today. She and her spouse live on [address] and are retired. She states she is normally independent in ADLs and drives. Plan: Per surgery notes she will be discharged in 1-2 days. Depending on her recovery: SNF rehab vs home with Home Health. ([facility] Gladys Pratt RN/JOSEP Discharge Planning/Care Management CM Discharge Assessment Start: 02/05/22 13:00 Freq: Status: Active Protocol: Document 02/05/22 13:00 (Rec: 02/05/22 13:03 [id number]) Discharge Planning Assessment Assigned Freelance Art Director Gladys Pratt RN, JOSEP Advance Directives? Yes Advance Directives on File No History Provided By Patient Prior Living Arrangements House Household Members spouse Type of transporation used prior to Drives own vehicle admit Independent with ADL's Yes Is patient alert and oriented? Yes Needs Assistance With Home Chores / Shopping Caregiver for Another No DME Already Rented / Owned FWW / Walker Barriers to Discharge No Discharge Plan Home Transportation Arrangement Spouse to transport patient back to [place] when ready for dc. Referrals Initiated None needed Whiteboard Updated in Patient Room with Yes name and ext. # of Freelance Art Director Review Status In Process Next Review Type Continued Stay Review Document 02/05/22 13:05 (Rec: 02/05/22 13:05 [id number]) Discharge Planning Assessment Assigned Freelance Art Director Gladys Pratt RN, DCP Advance Directives? Yes Advance Directives on File No History Provided By Patient Prior Living Arrangements House Household Members spouse Type of transporation used prior to Drives own vehicle admit Independent with ADL's Yes Is patient alert and oriented? Yes Needs Assistance With Home Chores / Shopping Caregiver for Another No DME Already Rented / Owned FWW / Walker Barriers to Discharge No Discharge Plan Home Transportation Arrangement Spouse to [facility] ready for [place]. Referrals Initiated None needed Whiteboard Updated in Patient Room with Yes name and ext. # of Freelance Art Director Review Status In Process Next Review Type Continued Stay Review Document 02/05/22 13:09 (Rec: 02/05/22 13:10 [id number]) Discharge Planning Assessment Assigned Freelance Art Director Gladys Pratt RN, DCP Advance Directives? Yes Advance Directives on File No History Provided By Patient Prior Living Arrangements House Comment [place] Household Members spouse Type of transporation used prior to Drives own vehicle admit Independent with ADL's Yes Is patient alert and oriented? Yes Needs Assistance With Home Chores / Shopping Caregiver for Another No DME Already Rented / Owned FWW / Walker Patient/Family Preference Home with Home Health Comment HH vs SNF Barriers to Discharge No Discharge Plan Home Transportation Arrangement [facility]. Referrals Initiated None needed Whiteboard Updated in Patient Room with Yes name and ext. # of Freelance Art Director Review Status In Process Next Review Type Continued Stay Review Pre-Anesthesia Assessment Start: 01/29/22 13:36 Freq: Status: Active Protocol: Document 01/29/22 13:36 CAB (Rec: 01/29/22 13:45 CAB [id number]) Pre-Anesthesia Assessment Preferred Name Anna Patient Information Reviewed Via Phone Assessment Assessment Completed With Patient Diagnostic Results BMP/CMP,CBC,EKG Comment Labs @ [facility] 01/10/22, ECG 01/10/22 scanned, COVID screen-needs to schedule Primary Care Provider None Seen Specialist in Last 12 Months Yes Specialist Seen Orthopedist Primary Language Greenlandic Supervisor Liquefaction Required No Height 144.78 cm Weight 63.503 kg Body Mass Index (BMI) 30.2 Hearing Ability Normal Visual Impairment No Limitations Visual Assist None Dentition Type Teeth, Natural Present,Teeth, Missing,Dental Implants Barriers to Learning None Hx Anesthesia Reactions No Hx Family Anesthesia Reaction No Hx Malignant Hyperthermia No Hx Blood Transfusions No Hx Blood Transfusion Reaction No Anesthesia Review Requested No Carton Counter Feeder No alcohol intake current alcohol intake frequency a few times a month Smoking Status Never smoker Substance Use Type does not use Pain Present Pain Reported Musculoskeletal Symptoms Abnormal Gait,Back Pain, Difficulty Walking,Radiating Pain into Limb History of Falling (Recent or History of No ) Patient is completely paralyzed or No completely immobile Mental Status Oriented to own ability Is patient on oxygen? No Does patient have ALICEA/SOB No Hx Sleep Apnea No Currently Taking a Beta Praveen No Hx Chest Pain No Hx SOB No Hx Syncope or Dizziness No Anti-Coagulant Therapy No Has a Mechanical Engineering Draftsperson No Cardiac Testing No Hx Pacemaker/ICD No Pacemaker Rep Required? No Cardiac Clearance Received Not Applicable Diet Type At Home Regular,Vegetarian dysphagia No Bladder Pattern Urgency Urinary Catheter Present No Hx Urinary Self Catheterization No Diabetes No HgbA1C 5.7 Date 01/10/22 Patient No Lactating No Hx Drug Resistant Organism No Presence of External or Internal Medical No Devices Have you had any close contact with Yes: Pt had Covid 01/12/20 someone diagnosed with COVID-19? Received a COVID vaccine? Yes Received all doses? Yes Marital Status Lives With spouse Prior Living Arrangements Apartment/Condo Support System Spouse Does the Patient Have Assistance After Yes Surgery Patient Discharge Plan Description Return Home Comment Pt advised 2 day length of stay per surgeon Additional comment [place] Safe in Current Environment Yes Been Physically Hurt or Threatened By a No Person in Current Environment Do you have thoughts of harming yourself None or others? Are you currently considering suicide? No Do you have a plan to hurt yourself or No Plan others? Do You Have Any Spiritual Beliefs That No May Affect Your HC Choices? Do You Have Any Cultural Practices That No May Affect Your HC Choices? Comment Episcopalian Who Can We Speak to About Patient's Care Family, friends Identifying Code for Release of Patient Declines to issue Information Health Care Proxy/Next of Kin Joseluis () Health Care Proxy Emergency Contact Name Joseluis () Emergency Contact Advance Directives? Yes Advance Directives on File No Requested Patient Bring Advanced Yes Directives DOS Power of Automatic Seamer No PAC Instructions Durable medical equipment, Medications to take/avoid, Nasal antibiotic,No ETOH/ petroleum product on skin DOS, NPO,Post-op transportation,Pre -surgical wash,Sturdy shoes/ comfortable clothes,Do not bring valuables and remove jewelry
--- NOTE | 2022-02-05 14:03 | PT.IPTN ---
Current Diagnoses Other spondylosis with radiculopathy, lumbar region (02/04/22) Spinal stenosis, lumbar region with neurogenic claudication (02/04/22) Surgery Performed Operation Date: 02/04/22 09:15 Actual Procedures p L4-5, L5-S1 TLIF w. posterior instrumentation -Robot - Antonino Cherry MD Physical Therapy Treatment Note M2 PT-IP Current Condition Start: 02/05/22 12:05 Freq: NEEDED Status: Active Protocol: Document 02/05/22 11:00 AB (Rec: 02/05/22 12:58 AB [id number]) Physical Therapy Current Condition Current Condition Evaluation Date 02/05/22 Treatment Diagnosis s/p L4-5, L5S1 TLIF; difficulty in walking Onset Date 02/04/22 M3 PT-IP Subjective Start: 02/05/22 12:05 Freq: NEEDED Status: Active Protocol: Document 02/05/22 14:03 AB (Rec: 02/05/22 15:55 AB [email or web address]) Subjective Physical Therapy Visit Type Type Treatment Note Visit Start Time 14:03 Visit Stop Time 14:26 Total Visit Minutes 23 Number of STONE BREAKER Visits 0 Physical Therapy Visit Comments Patient Comments agreeable to do PT M4 PT-IP Mobility and Gait Start: 02/05/22 12:05 Freq: NEEDED Status: Active Protocol: Document 02/05/22 14:03 AB (Rec: 02/05/22 15:55 AB [id number]) PT-Bed Mobility Assessment Rolling Type of Rolling Log Rolling Level of Assist Maximal Assistance Supine to Sit Supine to Sit Maximum Assistance,1 Person Assistance PT-Transfer Assessment Sit to and From Stand Sit to and from Stand Maximum Assistance,1 Person Assistance,Use of Upper Extremities Equipment Transfer Assistive Device Gait Belt,Front Wheeled Walker Orthotic/Prosthetic Devices or Brace: No Transfers Transfer Destination Chair Transfer Technique Stand Step Pivot Transfer Ability Level of Assist Maximum Assistance,1 Person Assistance,2 Person Assistance ,Use of Upper Extremities Comments Mobility Comments BP in supine: 136/67. completed supine to sit log roll max a and max cues. able to sit on EOB CGA. BP: 131/63 . completed sit to stand max A and max cues. max A for standing balance. completed step transfer to chair using FWW max A x 1-2 and max cues and pt presents with very unsteady steps with LE shakiness. BP after transfers : 99/35. nurse in room and aware of BP. positioned pt on the chair. call light and table placed within reach. BP checked: 130/45. M5 PT-IP Objective Assessments Start: 02/05/22 12:05 Freq: NEEDED Status: Active Protocol: Document 02/05/22 11:00 AB (Rec: 02/05/22 12:58 AB [id number]) Orientation Orientation/Cognition Level of Alertness Alert Orientation Name,Age,Situation Language Function Ability No Deficits Noted Safety Awareness Decreased Safety Awareness Memory Description Short Term Impaired Gross Range of Motion Lower Extremity ROM Assessment Within Functional Limits Strength Lower Extremity Strength Assessment Bilaterally Impaired Comments Strength Comments RLE: 3+/5 LLE: 3/5 Coordination Assessment Gross Coordination Gross Coordination WNL Sensation Assessment Sensation Gross Sensation Right LE Impaired,Left LE Impaired Sensation Description Numbness Comments Sensation Comments c/o numbness on BLE from hips down to feet Muscle Tone Muscle Tone WNL Yes M6 PT-IP Treatment Start: 02/05/22 12:05 Freq: NEEDED Status: Active Protocol: Document 02/05/22 14:03 AB (Rec: 02/05/22 15:[facility] Physical Therapy Treatment Education Education Provided Precautions,Safety M7 PT-IP Assessment and Plan Start: 02/05/22 12:05 Freq: NEEDED Status: Active Protocol: Document 02/05/22 14:03 AB (Rec: 02/05/22 15:55 [facility] PT Summary Assessment and Plan Potential Rehabilitation Potential Fair Summary Impairments Pain,ROM,Strength,Balance, Coordination,Sensation,Tone, Cognition,Bed Mobility, Transfers,Gait,Activity Tolerance Progress Towards Goals Slow Progress due to Pain,Slow Progress due to Medical Issues,Slow Progress due to Activity Tolerance Assessment Summary pt requiring max A x 1-2 for mobility and unable to tolerate much activity due to decrease in BP. will continue to assess progress but at this time will require SNF rehab. Goals Bed Mobility Goal Standby Assistance Transfer Goal Standby Assistance,Front Wheeled Walker Gait Goal Standby Assistance,Front Wheel Walker Gait Distance 200 Other Goals up/down 4 steps 1 rail SBA Days to Meet Goals 5 Frequency of Treatment Frequency Of Treatment Twice a Day Treatment Plan Physical Therapy Treatment Plan Bed Mobility Training,Transfer Training,Gait Training, Therapeutic Exercise,Balance Retraining,Post Op Education, Discharge Planning,Hot or Cold Pack,Neuromuscular Re-ed, Coordination Retraining,Manual Therapy Precautions Lumbar Precautions Log Roll,No Twisting,Limit Bending,Lifting Restriction of 10 lbs,Gait Belt above Incisional Area Recommendations To Nursing Amount of Assist Needed PT/OT Assist Only Discharge Recommendations PT Discharge Recommendations Home with 03/02 Assist Available,Home Health,SNF Rehab,Home vs SNF Transportation Needs at Discharge Private Vehicle,Wheelchair/ Cabulance
[2022-02-05] MEDS: hydrOXYzine pamoate 25 MG CAPSULE PO ×2 (16:08→22:06)
--- NOTE | 2022-02-05 19:29 | PC.NURSE ---
patient a/o, voices needs. voiced concerns about moving my legs. 1PA to dangle edge of bed. instructed on log roll. tolerated this well, sat EOB for 15 minutes. requested to get OOB to chair, asked ROOFING PLANT SUPERVISOR to assist, as patient reported wobbly legs, and some dizziness. tolerated OOB to recliner chair for 1 hour. room and safety checks: patient requested toileting for BM. 1pa to BS. patient requested privacy, and this RN stayed nearby and checked on patient thru the curtain. skin was pale yellow, she was closing her eyes and stated: i am dizzy. called ROOFING PLANT SUPERVISOR to room to assist w/ transfer to bed. patient hypotensive, b/p 108/56. call to PA to update, possibly needed IVF? no response noted, by then PT had completed ortho b/p's w/ significant drop in b/p. See VS record. 99/35, 122/56 were the vs recorded after exertion w/ PT. patient reports this happens sometimes at home, i just lay down on the floor and in 5 minutes it is better. Info fax sent to surgery center to notify Dr Cherry of above VS. encouraged patient to take fluids, she is drinking ice water. resting B/P improved by afternoon, 132/62. pulse 72. rico patent, set to remove tomorrow POD#2. pain controlled w/ apap and spasms controlled w/ vistaril PRN. in afternoon her temp 99.3, by 1600 was 101.7. blankets removed from lap, fresh gown applied. cool wet cloths placed on forehead and armpits. apap (2nd dose) given, temp rechecked: 101.1 and by end of shift was 98.3. report to NOC RN.
[2022-02-05] MEDS: SODIUM CHLORIDE 0.9% FLUSH 10 ML IV (20:00)
--- NOTE | 2022-02-05 21:19 | PC.NURSE ---
Addendum entered by Marianna De Jesus R.N. 02/06/22 06:38: Catheter d'cd as per MD order; patient tolerated well. Instructed in sx/prevention of UTI. Original Note: Patient is alert and oriented. Breath sounds CTA with RA sat of 98%. HRR. Had hypotension earlier today but is currently 144/66; denies dizziness. Denies nausea. BT hypoactive but reports she has been passing flatus. Indwelling catheter is patent; urine is clear yellow. Is able to move herself in bed. Up to BSC/chair to bed with walker and 2 assists. Needs cueing to keep walker in front of her at all times and not to let walker get ahead of her. Dressing to back is intact with 2 areas of shadow drainage. Has tingling in bilateral feet which she states is chronic. Foot SCD's applied once back to bed. Fall risk score is moderate and bed alarm is activated. Stated pain was only 3/10 and declined pain med at time of assessment.
[2022-02-06] VITALS (7 sets, daily range): BP systolic 104–154; BP diastolic 56–78; PULSE 67–88; RESP 16–19; TEMP 36.8–37.7; O2SAT 95–100
[2022-02-06] MEDS: ACETAMINOPHEN 325 MG TABLET 650 MG PO ×3 (05:04→21:48)
--- NOTE | 2022-02-06 07:38 | PM.DS.1 ---
History of Present Illness History of Present Illness Chief complaint: OPB Discharge Providers Provider Primary care physician: Brittany Stiles PA-C Consults: 02/04/22 14:13 Consult to Occupational Therapy Evaluate & Treat Comment: Physician Instructions: Evaluate and treat Consult to Physical Therapy Evaluate & Treat Comment: Physician Instructions: Evaluate and Treat Discharge provider: Alycia Stephens PA-C Exam Vital Signs (past 8 hours): - 02/06/22 00:00 02/06/22 04:58 Temperature 99.8 F H 99.5 F Pulse Rate 81 88 Respiratory Rate 18 18 Blood Pressure 141/63 H 147/78 H Pulse Oximetry 96 97 Oxygen Flow Rate 0 0 Oxygen Delivery Method Room Air Oxygen Flow Rate 0 Objective Labs Result Diagrams: 02/05/22 05:22 PFSH Medical History Chronic back pain Foot pain HTN (hypertension) Osteopenia Peripheral neuropathy Sciatica Surgical History History of section History of gynecologic surgery (12/12/20) Hx laparoscopic cholecystectomy Social History household members: spouse Smoking Status: Never smoker alcohol intake: current Discharge Plan Discharge orders & Medications Prescriptions: No Action lisinopril 10 mg tablet 10 mg PO DAILY Qty: 30 1RF Rx Instructions: Take one tablet once daily with your water pill for high blood pressure PreserVision AREDS-2 250-90-40-1 mg Capsule 1 tab PO BID Advil PM 200-38 mg Tablet 1 cap PO BEDTIME PRN (Reason: Sleep) Follow up/Referrals: Brittany Stiles PA-C [Primary Care Provider] - Discharge Data Primary Care Provider: Brittany Stiles Attending Provider: Antonino Cherry VTE Deep Vein Thrombosis/Pulmonary Embolism Present on Admission: No
--- NOTE | 2022-02-06 07:41 | PM.PNPO.1 ---
Subjective Subjective Date Patient Seen: 02/06/22 Time Patient Seen: 07:41 Interval history: The patient is complaining of moderate to severe low back pain. She is also complaining of nerve type pain in her left lateral thigh, worse since surgery. She reports being hypotensive and passing out with physical therapy yesterday. Exam Vital Signs (past 8 hours): - 02/06/22 00:00 02/06/22 04:58 Temperature 99.8 F H 99.5 F Pulse Rate 81 88 Respiratory Rate 18 18 Blood Pressure 141/63 H 147/78 H Pulse Oximetry 96 97 Oxygen Flow Rate 0 0 Oxygen Delivery Method Room Air Oxygen Flow Rate 0 Narrative Exam Narrative: Pleasant 66yo female, resting comfortably in bed, no acute distress. Dressing demonstrates scant sangiunous drainage bilaterally. No surrounding erythema or induration. Bilateral lower extremities: motor function is grossly intact, sensation is grossly intact to light touch, bilateral calves are soft and nonTTP. Objective Labs Result Diagrams: 02/05/22 05:22 PENDING SALE TO [facility] Medical History Chronic back pain Foot pain HTN (hypertension) Osteopenia Peripheral neuropathy Sciatica Surgical History History of section History of gynecologic surgery (12/12/20) Hx laparoscopic cholecystectomy Social History household members: spouse Smoking Status: Never smoker alcohol intake: current Assessment & Plan Post-op Postoperative Procedures: Procedures Operation Date: 02/04/22 09:15 Actual Procedure Side Surgeon p L4-5, L5-S1 TLIF w. posterior instrumentation -Robot Antonino Cherry MD Postoperative day: 2 Postoperative status: marginal pain control Postoperative status narrative: -stable status post TLIF -postop hemmoragic anemia vs hypotension, symptomatic Postoperative plan narrative: -mobilize with PT/OT, limit bending, lifting, twisting x6 wks -repeat H&H today, encouraged to dangle legs at side of bed before standing, encouraged fluids -continue with multimodal pain management. Add steroid for nerve pain -dc to home with home health vs SNF. Will check on patient later today to see about discharge. Quality VTE Deep Vein Thrombosis/Pulmonary Embolism Present on Admission: No
[2022-02-06] MEDS: VIT C/E/ZN/COPPR/LUTEIN/ZEAXAN CAPSULE 1 CAP PO ×2 (09:14→20:44)
[2022-02-06] MEDS: lisinopriL 10 MG TABLET PO (09:14)
[2022-02-06] MEDS: SODIUM CHLORIDE 0.9% FLUSH 10 ML IV ×2 (09:15→20:44)
[2022-02-06] MEDS: DOCUSATE 100 MG CAPSULE PO ×2 (09:15→20:44)
--- NOTE | 2022-02-06 09:36 | PT.IPTN ---
Current Diagnoses Other spondylosis with radiculopathy, lumbar region (02/04/22) Spinal stenosis, lumbar region with neurogenic claudication (02/04/22) Surgery Performed Operation Date: 02/04/22 09:15 Actual Procedures p L4-5, L5-S1 TLIF w. posterior instrumentation -Robot - Antonino Cherry MD Physical Therapy Treatment Note M2 PT-IP Current Condition Start: 02/05/22 12:05 Freq: NEEDED Status: Active Protocol: Document 02/05/22 11:00 AB (Rec: 02/05/22 12:58 AB [id number]) Physical Therapy Current Condition Current Condition Evaluation Date 02/05/22 Treatment Diagnosis s/p L4-5, L5S1 TLIF; difficulty in walking Onset Date 02/04/22 M3 PT-IP Subjective Start: 02/05/22 12:05 Freq: NEEDED Status: Active Protocol: Document 02/06/22 09:16 KS (Rec: 02/06/22 10:32 KS [id number]) Subjective Physical Therapy Visit Type Type Treatment Note Visit Start Time 09:16 Visit Stop Time 09:36 Total Visit Minutes 20 Number of COOLING SYSTEM OPERATOR Visits 1 Physical Therapy Visit Comments Patient Comments agreeable to do PT M4 PT-IP Mobility and Gait Start: 02/05/22 12:05 Freq: NEEDED Status: Active Protocol: Document 02/06/22 09:16 KS (Rec: 02/06/22 10:32 KS [id number]) PT-Bed Mobility Assessment Rolling Type of Rolling Log Rolling Level of Assist Minimal Assistance Supine to Sit Supine to Sit Minimal Assistance,1 Person Assistance,Bedrails Scooting Scooting to Edge of Bed Contact Guard Assistance PT-Transfer Assessment Sit to and From Stand Sit to and from Stand Minimal Assistance,1 Person Assistance,Use of Upper Extremities Equipment Transfer Assistive Device Gait Belt,Front Wheeled Walker Orthotic/Prosthetic Devices or Brace: No Transfers Transfer Destination Chair Transfer Technique Pt ambulated w/ FWW Transfer Ability Level of Assist Minimal Assistance,1 Person Assistance,Use of Upper Extremities Comments Mobility Comments Pt in bed upon arrival and agreeable to mobilize. Able to recall 2/3 precautions (no lifting). Pts BP supine: 126/ 69. Pt required Min A and cues for logroll and sidelying<> sit. CGA and increased time to scoot EOB. Pts BP sitting 134 /71. Pt then sit<>stand Min A and cues for hand placement w/ FWW. Her legs were shaky upon standing, but became more stable after ~30 seconds and cues for quad facilitation. BP 115/60 in standing w/o symptoms. Pt performed ~[address] and then ambulated ~5 ft to chair w/ FWW Min A and very difficult time elevating LE to take steps. Extremely short stride and very minimal ground clearance. Pt c/o exhaustion following ambulation to chair. Pt left in chait w/ all needs in reach. RN aware. Gait Assessment Gait Gait Assistance Required: Minimum Assistance,1 Person Assist Distance (Feet) 5 Able to Maintain Weight Bearing Status No During Gait Assistive Devices Assistive Device Gait Belt,Front Wheeled Walker Gait Deviations General Gait Pattern Decreased Stride Length, Decreased Feet Clearance Factors Limiting Gait Function Factors Limiting Gait Function Decreased Activity Tolerance, Decreased Sensation,Decreased Strength,Limited Range of Motion,Pain,Poor Safety Awareness Comments Gait Comments Please see mobility section for details. Stair Climbing Assessment Comments Stair Climbing Comments Unable to assess d/t low activity tolerance and pt currently unable to lift LE high enough to ascend step. PT-Balance Assessment Sitting Balance and Reactions Static Sitting Balance Ability Good Dynamic Sitting Balance Ability Fair Standing Balance and Reactions Static Standing Balance Ability Fair Dynamic Standing Balance Ability Fair Device Used FWW M5 PT-IP Objective Assessments Start: 02/05/22 12:05 Freq: NEEDED Status: Active Protocol: Document 02/05/22 11:00 AB (Rec: 02/05/22 12:58 AB [id number]) Orientation Orientation/Cognition Level of Alertness Alert Orientation Name,Age,Situation Language Function Ability No Deficits Noted Safety Awareness Decreased Safety Awareness Memory Description Short Term Impaired Gross Range of Motion Lower Extremity ROM Assessment Within Functional Limits Strength Lower Extremity Strength Assessment Bilaterally Impaired Comments Strength Comments RLE: 3+/5 LLE: 3/5 Coordination Assessment Gross Coordination Gross Coordination WNL Sensation Assessment Sensation Gross Sensation Right LE Impaired,Left LE Impaired Sensation Description Numbness Comments Sensation Comments c/o numbness on BLE from hips down to feet Muscle Tone Muscle Tone WNL Yes M6 PT-IP Treatment Start: 02/05/22 12:05 Freq: NEEDED Status: Active Protocol: Document 02/06/22 09:16 KS (Rec: 02/06/22 10:32 KS [id number]) Physical Therapy Treatment Education Education Provided Precautions,Safety M7 PT-IP Assessment and Plan Start: 02/05/22 12:05 Freq: NEEDED Status: Active Protocol: Document 02/06/22 09:16 KS (Rec: 02/06/22 10:32 KS [id number]) PT Summary Assessment and Plan Potential Rehabilitation Potential Fair Summary Impairments Pain,ROM,Strength,Balance, Coordination,Sensation,Tone, Cognition,Bed Mobility, Transfers,Gait,Activity Tolerance Progress Towards Goals Slow Progress due to Pain,Slow Progress due to Medical Issues,Slow Progress due to Activity Tolerance Assessment Summary Pt needing less assist this AM , but still very limited by weakness and low activity tolerance. She was only able to ambulate 5 ft to chair w/ FWW and barely clearing feet from ground when stepping. Pt reported exhaustion following. She has 4 steps to enter home which are a barrier as she was unable to elevate feet high enough from ground to ascend a step. Will continue to assess progress, but at this time recommending SNF d/t pts increased need for assistance, weakness, and low activity tolerance. Goals Bed Mobility Goal Standby Assistance Transfer Goal Standby Assistance,Front Wheeled Walker Gait Goal Standby Assistance,Front Wheel Walker Gait Distance 200 Other Goals up/down 4 steps 1 rail SBA Days to Meet Goals 5 Frequency of Treatment Frequency Of Treatment Twice a Day Treatment Plan Physical Therapy Treatment Plan Bed Mobility Training,Transfer Training,Gait Training, Therapeutic Exercise,Balance Retraining,Post Op Education, Discharge Planning,Hot or Cold Pack,Neuromuscular Re-ed, Coordination Retraining,Manual Therapy Precautions Lumbar Precautions Log Roll,No Twisting,Limit Bending,Lifting Restriction of 10 lbs,Gait Belt above Incisional Area Recommendations To Nursing Amount of Assist Needed 2 Person Assist Discharge Recommendations PT Discharge Recommendations Home with 03/02 Assist Available,Home Health,SNF Rehab,Home vs SNF Transportation Needs at Discharge Private Vehicle,Wheelchair/ Cabulance
--- NOTE | 2022-02-06 10:15 | OT.IP.EVAL ---
Current Diagnoses Other spondylosis with radiculopathy, lumbar region (02/04/22) Spinal stenosis, lumbar region with neurogenic claudication (02/04/22) Surgery Performed Operation Date: 02/04/22 09:15 Actual Procedures p L4-5, L5-S1 TLIF w. posterior instrumentation -Robot - Antonino Cherry MD Past Medical History (Last Reviewed 02/06/22 @ 07:44 by Alycia Stephens PA-C) Chronic back pain Foot pain HTN (hypertension) Osteopenia Peripheral neuropathy Sciatica Surgical History (Last Reviewed 02/06/22 @ 07:44 by Alycia Stephens PA-C) History of section History of gynecologic surgery (12/12/20) Hx laparoscopic cholecystectomy Occupational Therapy Inpatient Evaluation/Re-Eval M1 PT/OT-IP Prior Functional Status Start: 02/05/22 12:05 Freq: NEEDED Status: Active Protocol: Document 02/06/22 10:18 [facility] (Rec: 02/06/22 10:35 [facility] [id number]) Medical Review Prior Functional Status Medical History Reviewed Yes Communication able to make needs known but needs time to answer questions or follow directions Mobility and Gait pt stated that she is modified independent with all mobilities and ambulation without AD but occasionally uses walking sticks for outdoor mobility Activities of Daily Living and IADL's Pt states had pain all the time but able to do her ADL's and IADL's. Social History Household Members spouse Living Arrangements House Number of Floors (Floors) Two Floors Number of Stairs To Enter/Railing? pt stays on main level of the house 4 steps wide bilateral rails Home Environment Standard Height Toilet,Walk in Shower Home Equipment Hand Held Shower M2 OT-IP Current Condition Start: 02/06/22 10:18 Freq: Status: Active Protocol: Document 02/06/22 10:18 [facility] (Rec: 02/06/22 10:35 [facility] [id number]) Occupational Therapy Current Condition Current Condition Evaluation Date 02/06/22 Treatment Diagnosis s/p L4-5, L5-S1 TLIF Diagnosis Onset Date 02/04/22 Post Operative Precautions Lumbar Precautions Log Roll,No Twisting,Limit Bending,Lifting Restriction of 10 lbs,Gait Belt above Incisional Area M3 OT- IP Subjective and Pain Start: 02/06/22 10:18 Freq: Status: Active Protocol: Document 02/06/22 10:18 [facility] (Rec: 02/06/22 10:35 [facility] [id number]) OT- Subjective Occupational Therapy Visit Type Type Initial Evaluation Visit Start Time 09:47 Visit Stop Time 10:15 Total Visit Minutes 28 Occupational Therapy Visit Comments Patient Comments Pt agreed to try to get to the sink for grooming needs. Patient/Caregiver Goals Pt really wanting to go home but open to skilled rehab if needed. OT Pain Assessment Pain When Pain Assessed During Mobility Pain Present Pain Present Pain Reported Location Bilateral Back Intensity 3 Scale Used Numeric (0 - 10) M4 OT- IP ADL's Start: 02/06/22 10:18 Freq: Status: Active Protocol: Document 02/06/22 10:18 [facility] (Rec: 02/06/22 10:35 [facility] [id number]) OT [id number] Comments OT Self-Feeding Comments Not at meal time. OT ADL-Grooming General Evaluation Grooming Ability Standby Assistance Areas Needing Assistance Retrieving/Set-up of Grooming Items Comments OT Grooming Comments set-up while seated OT ADL-Oral Care General Eval Oral Care Ability Standby Assistance Areas of Assistance Retrieving/Set-Up of Items Comments Oral Care Comments While seated. OT ADL-Dressing General Eval Lower Body Dressing Ability Maximum Assistance Comments OT Dressing Comments Able to show pt LB dressing equipment and practice. Pt states her will assist her at home and that she will just wear slip on shoes. OT ADL-Toileting Comments OT Toileting Comments Pt not having to go and educated regarding to either lean to the side to wipe,stand , or may need assist for or toilet paper aid / bidet. Pt too tired to get to the toilet at this time. OT ADL-Bathing Comments OT Bathing Comments Pt refused to sponge off at this time due to too tired. M5 OT- IP IADL's Start: 02/06/22 10:18 Freq: Status: Active Protocol: Document 02/06/22 10:18 [facility] (Rec: 02/06/22 10:35 [facility] [id number]) OT-Instrumental Activities of Daily Living Home Safety Awareness Awareness of Need for Assistance at Home Decreased Awareness Home Safety Comments Pt has a supportive to be able to assist with her needs at home. Medication Management Medication Management Comments Pt a bit groggy and would best to to have her assist at this time. M6 OT- IP Functional Cognition Start: 02/06/22 10:18 Freq: Status: Active Protocol: Document 02/06/22 10:18 [facility] (Rec: 02/06/22 10:35 [facility] [id number]) Cognitive Factors Limiting Selfcare Function Cognitive Ability Level of Alertness Alert Patient Orientation Name,Place,Situation Attention Span Ability Capable of Focused Attention, Capable of Sustained Attention Ability to Follow Commands Able to Follow One Step Commands Safety Awareness Underestimates Need for Assistance Cognitive Comments Cognitive Assessment Comments Pt a little groggy and tired but able to follow commands. Pt states initially states would be able to stand with FWW at home for showering but when unable to stand for more then 1 min agreed best to get a shower chair. OT- Vision and Hearing OT- Hearing Assessment OT- Hearing Assessment WFL OT- Vision Assessment Visual Acuity Glasses For Reading M7 OT- IP Mobility and Balance Start: 02/06/22 10:18 Freq: Status: Active Protocol: Document 02/06/22 10:18 [facility] (Rec: 02/06/22 10:35 [facility] [id number]) OT-Transfer Assessment Sit to and From Stand Sit to and from Stand Moderate Assistance Comments Mobility Comments MODA to stand form higher surface to FWW. BP sitting 106 /60, while standing 104/75 and then too tired and wanting to sit down. while seated 80/44 and then reclined 122/59, pt symptomatic of feeling like she was going to pass out, nursing notified. OT- Balance Assessment Sitting Balance and Reactions Static Sitting Balance Ability Good Dynamic Sitting Balance Ability Fair Standing Balance and Reactions Static Standing Balance Ability Fair M8 OT- IP Objective Assessments Start: 02/06/22 10:18 Freq: Status: Active Protocol: Document 02/06/22 10:18 [facility] (Rec: 02/06/22 10:35 [facility] [id number]) OT-Muscle Tone Assessment Muscle Tone WNL Yes M9 OT- IP Assessment and Plan Start: 02/06/22 10:18 Freq: Status: Active Protocol: Document 02/06/22 10:18 [facility] (Rec: 02/06/22 10:35 [facility] [id number]) OT Summary Assessment and Plan Potential Rehabilitation Potential Good Analytic Complexity at Evaluation Moderate Summary OT Impairments Pain,Balance,Functional Mobility,Grooming,Dressing, Toileting,Bathing,Toilet Transfers,Shower Transfers, Activity Tolerance Progress Towards Goals Slow Progress due to Medical Issues,Slow Progress due to Activity Tolerance Goals Grooming Goal Independent Dressing Goal Independent Toileting Goal Independent Bathing Goal Independent Toilet Transfer Goal Independent Shower Transfer Goal Independent Days to Meet Goals 15 Frequency of Treatment Frequency Of Treatment Once a Day Treatment Plan OT Treatment Plan ADL Training,Functional Cognition Training,Functional Mobility,Patient/Family Education,Discharge Planning Other Treatment Recommendations and Next stand at the sink for grooming Treatment Focus needs with FWW CGA Discharge Recommendations OT Discharge Recommendations SNF Rehab Other Discharge Recommendations Pending progress , possible to go home with / assist and home health Home Equipment Needs shower chair, BSC Transportation Needs at Discharge Wheelchair/Cabulance
[2022-02-06] MEDS: DEXAMETHASONE 4 MG/ML VIAL IV ×2 (11:30→18:35)
--- NOTE | 2022-02-06 13:05 | PT.IPTN ---
Current Diagnoses Other spondylosis with radiculopathy, lumbar region (02/04/22) Spinal stenosis, lumbar region with neurogenic claudication (02/04/22) Surgery Performed Operation Date: 02/04/22 09:15 Actual Procedures p L4-5, L5-S1 TLIF w. posterior instrumentation -Robot - Antonino Cherry MD Physical Therapy Treatment Note M2 PT-IP Current Condition Start: 02/05/22 12:05 Freq: NEEDED Status: Active Protocol: Document 02/05/22 11:00 AB (Rec: 02/05/22 12:58 AB [id number]) Physical Therapy Current Condition Current Condition Evaluation Date 02/05/22 Treatment Diagnosis s/p L4-5, L5S1 TLIF; difficulty in walking Onset Date 02/04/22 M3 PT-IP Subjective Start: 02/05/22 12:05 Freq: NEEDED Status: Active Protocol: Document 02/06/22 12:42 KS (Rec: 02/06/22 14:54 KS [id number]) Subjective Physical Therapy Visit Type Type Treatment Note Visit Start Time 12:42 Visit Stop Time 13:05 Total Visit Minutes 23 Number of YOUTH SERVICES SPECIALIST Visits 2 Physical Therapy Visit Comments Patient Comments agreeable to do PT M4 PT-IP Mobility and Gait Start: 02/05/22 12:05 Freq: NEEDED Status: Active Protocol: Document 02/06/22 12:42 KS (Rec: 02/06/22 14:54 KS [id number]) PT-Transfer Assessment Sit to and From Stand Sit to and from Stand Minimal Assistance,1 Person Assistance,Use of Upper Extremities Equipment Transfer Assistive Device Gait Belt,Front Wheeled Walker Orthotic/Prosthetic Devices or Brace: No Transfers Transfer Destination Chair Transfer Technique Pt ambulated w/ FWW Transfer Ability Level of Assist Minimal Assistance,1 Person Assistance,Use of Upper Extremities Comments Mobility Comments Pt in chair upon arrival and c /o knee pain. Pts BP 119/68 sitting. Min A and cues for sit<>stand w/ FWW, pts BP 102/ 80, denied symptoms. Pt then ambulated ~12 ft, very shaky in both legs and still w/ very small step length and minimal ground clearance. Pts BP taken again in stnading and 116/61. She ambulated additional 10 ft but c/o intense fatigue and returned to chair. BP after treatment 130/70 in sitting. Pt left in chair w/ all needs in reach. Gait Assessment Gait Gait Assistance Required: Minimum Assistance,1 Person Assist Distance (Feet) 12 Able to Maintain Weight Bearing Status No During Gait Assistive Devices Assistive Device Gait Belt,Front Wheeled Walker Gait Deviations General Gait Pattern Decreased Stride Length, Decreased Feet Clearance Factors Limiting Gait Function Factors Limiting Gait Function Decreased Activity Tolerance, Decreased Sensation,Decreased Strength,Limited Range of Motion,Pain,Poor Safety Awareness Comments Gait Comments Please see mobility section for details. Stair Climbing Assessment Comments Stair Climbing Comments Unable to assess d/t low activity tolerance and pt currently unable to lift LE high enough to ascend step. PT-Balance Assessment Sitting Balance and Reactions Static Sitting Balance Ability Good Dynamic Sitting Balance Ability Fair Standing Balance and Reactions Static Standing Balance Ability Fair Dynamic Standing Balance Ability Fair Device Used FWW M5 PT-IP Objective Assessments Start: 02/05/22 12:05 Freq: NEEDED Status: Active Protocol: Document 02/05/22 11:00 AB (Rec: 02/05/22 12:58 AB [id number]) Orientation Orientation/Cognition Level of Alertness Alert Orientation Name,Age,Situation Language Function Ability No Deficits Noted Safety Awareness Decreased Safety Awareness Memory Description Short Term Impaired Gross Range of Motion Lower Extremity ROM Assessment Within Functional Limits Strength Lower Extremity Strength Assessment Bilaterally Impaired Comments Strength Comments RLE: 3+/5 LLE: 3/5 Coordination Assessment Gross Coordination Gross Coordination WNL Sensation Assessment Sensation Gross Sensation Right LE Impaired,Left LE Impaired Sensation Description Numbness Comments Sensation Comments c/o numbness on BLE from hips down to feet Muscle Tone Muscle Tone WNL Yes M6 PT-IP Treatment Start: 02/05/22 12:05 Freq: NEEDED Status: Active Protocol: Document 02/06/22 12:42 KS (Rec: 02/06/22 14:54 AR [id number]) Physical Therapy Treatment Education Education Provided Precautions,Safety M7 PT-IP Assessment and Plan Start: 02/05/22 12:05 Freq: NEEDED Status: Active Protocol: Document 02/06/22 12:42 KS (Rec: 02/06/22 14:54 AR [id number]) PT Summary Assessment and Plan Potential Rehabilitation Potential Fair Summary Impairments Pain,ROM,Strength,Balance, Coordination,Sensation,Tone, Cognition,Bed Mobility, Transfers,Gait,Activity Tolerance Progress Towards Goals Slow Progress due to Pain,Slow Progress due to Medical Issues,Slow Progress due to Activity Tolerance Assessment Summary Pt w/ very slow progress and still unsafe to complete stair training due to shakiness when standing and inabiltiy to elevate LE high enough to ascend steps. Very quick approach to fatigue following ambulation. Spoke to pts and pt who both feel it would be best for pt to go to SNF to improve strength and functional mobility prior to returning home. Goals Bed Mobility Goal Standby Assistance Transfer Goal Standby Assistance,Front Wheeled Walker Gait Goal Standby Assistance,Front Wheel Walker Gait Distance 200 Other Goals up/down 4 steps 1 rail SBA Days to Meet Goals 5 Frequency of Treatment Frequency Of Treatment Twice a Day Treatment Plan Physical Therapy Treatment Plan Bed Mobility Training,Transfer Training,Gait Training, Therapeutic Exercise,Balance Retraining,Post Op Education, Discharge Planning,Hot or Cold Pack,Neuromuscular Re-ed, Coordination Retraining,Manual Therapy Precautions Lumbar Precautions Log Roll,No Twisting,Limit Bending,Lifting Restriction of 10 lbs,Gait Belt above Incisional Area Recommendations To Nursing Amount of Assist Needed 2 Person Assist Discharge Recommendations PT Discharge Recommendations Home with 03/02 Assist Available,Home Health,SNF Rehab Transportation Needs at Discharge Private Vehicle,Wheelchair/ Cabulance
--- NOTE | 2022-02-06 15:32 | CM.DPNOTE ---
Discharge Planning Note: Met with patient several times today. This afternoon, patient is agreeable to a SNF (was starting to refuse earlier). Patient was still hypotensive with PT today but improved later per Saida. Patient still complaining of knee pain and weakness and would benefit from SNF. Spoke with [facility]--they can accept Thursday 02/08. Spoke with [facility], they can accept tomorrow 02/07. In each facility she would have to be quarantined for a week. Informed patient and she is okay with this. (Patient does not want a 2nd booster as she had a rxn to the first one, fainted, she states). Referrals sent to both facilities. Plan: Follow up with tomorrow and if discharged tomorrow could go to [facility]. Gladys Pratt RN/DCP
--- NOTE | 2022-02-06 15:52 | CM.DPNOTE ---
Sent referral to [facility] per Halina. Ana Tillman CM Assist.
[2022-02-06] MEDS: SENNOSIDES 8.6 MG TABLET 17.2 MG PO (20:44)
--- NOTE | 2022-02-06 22:14 | PC.NURSE ---
Patient is alert and oriented. Breath sounds CTA with RA sat of 98%. HRR. Denies nausea. BT present and is passing flatus but has not yet had a BM. Had catheter removed early this morning and has been voiding but states she does have some burning with urination. Is able to turn herself in bed and is up to bathroom with walker and SBA. Dressing to back intact with no new drainage. Complains of bilateral knee pain with severity of 2-3/10 and was medicated with Tylenol; also receiving 3 doses of dexamethasone. Chronic bilateral foot tingling unchanged. Wearing bilateral foot SCD's. Fall risk score is moderate and bed alarm is activated although patient does call appropriately for assistance.
[2022-02-07] MEDS: DEXAMETHASONE 4 MG/ML VIAL IV (00:06)
[2022-02-07] MEDS: SODIUM CHLORIDE 0.9% FLUSH 10 ML IV ×2 (00:07→09:05)
[2022-02-07] MEDS: hydrOXYzine pamoate 25 MG CAPSULE PO (00:09)
[2022-02-07 07:45] VITALS: BP 124/73; PULSE 72; RESP 17; TEMP 37.2; O2SAT 96
--- NOTE | 2022-02-07 08:45 | P.DS_ITS ---
History of Present Illness History of Present Illness Date Patient Seen: 02/07/22 Time Patient Seen: 08:45 Chief complaint: Back pain Narrative: Patient states her back pain is mild. Denies fever chills. No shortness of breath or chest pain. She denies dizziness. Otherwise without complaints. Discharge Providers Provider Date of admission: 02/04/22 07:35 Discharge Date: 02/07/22 Primary care physician: Brittany Stiles PA-C Consults: 02/04/22 14:13 Consult to Occupational Therapy Evaluate & Treat Comment: Physician Instructions: Evaluate and treat Consult to Physical Therapy Evaluate & Treat Comment: Physician Instructions: Evaluate and Treat Discharge provider: Andrea Maya PA-C Summary Hospital Course Discharge Diagnosis: . L4-5, L5-S1 spinal stenosis? 2. L4-5, L5-S1 spondylosis with radiculopathy Orthostatic hypotension Hospital Course: 1. L4-5, L5-S1 Postero-lateral and posterior interbody fusion 2. L4-5, L5-S1 interbody cage placement. 3. L4-5, L5-S1 decompressive laminectomy with bilateral facetecomies 4. L4-5, L5-S1 Posterior segmental instrumentation 5. Crump of bone marrow from iliac crest 6. Utilization of microsurgical technique and operating microscope 7. Utilization of robotic assisted navigation Same procedure as scheduled: Yes Indications: Patient has been having chronic back pain and worsening lumbar radiculopathy. Patient failed multiple conservative management with worsening pain weakness and numbness in her lower extremity.? Patient has been having difficulty performing activity of daily living.? After discussing risks benefits of treatment options, patient elected proceed with surgery. Surgeon: Antonino Cherry Community Outreach Specialist: Alycia Stephens Click Yes if Unassisted: No Anesthesia Type: General Operative Notes Closure Type: primary Specimen(s): none sent Prosthetic devices, grafts, tissues, transplants, or devices: Globus CREO MIS screws, Rise cages Applied: catheter Estimated Blood Loss (mL): 100 Patient admitted to the hospital for the above-mentioned procedure. Patient consented to the same. Patient underwent surgery on February 04, 2022. Patient has been slow to progress. Patient has had orthostatic hypotension with physical therapy. Patient has been 2 person assist. Patient will be discharged to custodial facility today. Exam Vital Signs (past 8 hours): - 02/07/22 07:45 Temperature 99.0 F Pulse Rate 72 Respiratory Rate 17 Blood Pressure 124/73 Pulse Oximetry 96 Oxygen Flow Rate 0 Oxygen Delivery Method Room Air Oxygen Flow Rate 0 Narrative Exam Narrative: 66-year-old female resting comfortably in bed in no apparent distress. Motor functions intact bilateral lower extremities. Sensation grossly intact to light touch bilateral lower extremities. Const General: cooperative and comfortable Nutritional Appearance: average body habitus Orientation: alert Resp Effort & Inspection: normal respiratory effort and able to speak in complete sentences Objective Labs Result Diagrams: 02/05/22 05:22 [facility] Medical History Chronic back pain Foot pain HTN (hypertension) Osteopenia Peripheral neuropathy Sciatica Surgical History History of section History of gynecologic surgery (12/12/20) Hx laparoscopic cholecystectomy Social History household members: spouse Smoking Status: Never smoker alcohol intake: current Discharge Assessment & Plan Assessment and Plan Assessment: Patient is slow to progress with orthostatic hypotension when working with physical therapy. Plan of Treatment: Mobilize with physical therapy, limit bending, twisting, lifting Multimodal pain management Discharge to custodial facility today. Patient has been 2 person assist. Would benefit from further physical therapy at custodial facility prior to going home. Discharge Plan Discharge Plan Patient Disposition: SNF Discharge orders & Medications Prescriptions: New acetaminophen 325 mg Tablet 650 mg PO Q6HR PRN (Reason: Pain, Mild (1-3)) Qty: 60 0RF docusate sodium 100 mg Capsule 100 mg PO BID Qty: 30 0RF oxycodone 5 mg tablet 5 mg PO Q4H PRN (Reason: pain (scale score 7-10)) Qty: 60 0RF Continued lisinopril 10 mg tablet 10 mg PO DAILY Qty: 30 1RF Rx Instructions: Take one tablet once daily with your water pill for high blood pressure PreserVision AREDS-2 250-90-40-1 mg Capsule 1 tab PO BID Discontinued Advil PM 200-38 mg Tablet 1 cap PO BEDTIME PRN (Reason: Sleep) Follow up/Referrals: Brittany Stiles PA-C [Primary Care Provider] - Antonino Cherry MD [Physician] - (10-14 days for postoperative visit) Diet/Activity/Treatments Diet: Diet as Tolerated Activity: Limit bending, lifting, twisting Other treatments: Dressing/Wound care: -Keep dressing in place until postoperative follow-up office visit. -Okay to shower. Keep wound out of direct water stream. Can use PressNSeal plastic wrap to protect from shower stream. No soaking or submerging until all the scabs fall off (approximately 6 weeks). -Please call the office if dressing becomes wet, soiled, or saturated. Activities: -Limit bending, lifting, twisting x6 weeks. No deep bending (more than 90 degrees) or twisting at the waist. No lifting > 20 pounds. -Walk frequently. -Weight-bearing as tolerated. Use front wheeled walker, and progress to cane when safe. -Continue with home exercises as directed by your physical therapist. -Ice your incision as needed for pain/inflammation/swelling. Protect your skin with a folded pillowcase. -Incentive Spirometer (breathing device from hospital): 5-10xs every hour while awake for the first 1-2 weeks. Follow-up: -Follow-up with your surgeon or PA in the office in 10-14 days after surgery. -Follow-up with your surgeon 6 weeks postoperatively. Call the office if you have chest pain, shortness of breath, significant swelling that will not resolve with elevating, fever over 101?, significantly worsening pain, or are concerned you might need to go to the Emergency Room. [facility]: [phone] Skin/Wound/Dressing Care Report to your healthcare provider any signs of infection, such as:: chills, fever, night sweats, unusual drainage and unusual redness Special Rehabilitation Services Reason for rehabilitation: Post-operative therapy Rehab type: Physical therapy and Occupational therapy Visit Report/Discharge Packet Instructions: DI for Prescription Opioid Use, DI for Transforaminal Lumbar Interbody Fusion Stand Alone Forms: Surgery Discharge Discharge Data Primary Care Provider: Brittany Stiles VTE Deep Vein Thrombosis/Pulmonary Embolism Present on Admission: No
[2022-02-07] MEDS: DOCUSATE 100 MG CAPSULE PO (09:05)
[2022-02-07] MEDS: VIT C/E/ZN/COPPR/LUTEIN/ZEAXAN CAPSULE 1 CAP PO (09:05)
--- NOTE | 2022-02-07 10:47 | OT.IP.TRT ---
Current Diagnoses Other spondylosis with radiculopathy, lumbar region (02/04/22) Spinal stenosis, lumbar region with neurogenic claudication (02/04/22) Surgery Performed Operation Date: 02/04/22 09:15 Actual Procedures p L4-5, L5-S1 TLIF w. posterior instrumentation -Robot - Antonino Cherry MD Occupational Therapy Treatment Note M2 OT-IP Current Condition Start: 02/06/22 10:18 Freq: Status: Active Protocol: Document 02/06/22 10:18 [facility] (Rec: 02/06/22 10:35 [facility] [id number]) Occupational Therapy Current Condition Current Condition Evaluation Date 02/06/22 Treatment Diagnosis s/p L4-5, L5-S1 TLIF Diagnosis Onset Date 02/04/22 Post Operative Precautions Lumbar Precautions Log Roll,No Twisting,Limit Bending,Lifting Restriction of 10 lbs,Gait Belt above Incisional Area M3 OT- IP Subjective and Pain Start: 02/06/22 10:18 Freq: Status: Active Protocol: Document 02/07/22 11:17 [facility] (Rec: 02/07/22 11:26 [facility] [id number]) OT- Subjective Occupational Therapy Visit Type Type Treatment Note Visit Start Time 10:20 Visit Stop Time 10:47 Total Visit Minutes 27 Occupational Therapy Visit Comments Patient Comments Pt requesting to sponge off. Patient/Caregiver Goals TO go to skilled rehab. OT Pain Assessment Pain When Pain Assessed At Rest Pain Present Pain Present Pain Reported M4 OT- IP ADL's Start: 02/06/22 10:18 Freq: Status: Active Protocol: Document 02/07/22 11:17 [facility] (Rec: 02/07/22 11:26 [facility] [id number]) OT [id number] Comments OT Self-Feeding Comments Not at meal time. OT ADL-Grooming General Evaluation Grooming Ability Independent Comments OT Grooming Comments while seated OT ADL-Oral Care General Eval Oral Care Ability Independent Comments Oral Care Comments while seated OT ADL-Dressing General Eval Lower Body Dressing Ability Maximum Assistance Areas Needing Assistance Socks OT ADL-Toileting Comments OT Toileting Comments Pt not having to go at this time. OT ADL-Bathing Bathing Type Bathing Type Sponge Bath General Evaluation Bathing Ability Moderate Assistance Areas Needing Assistance Wash/Dry Back,Wash/Dry Lower Extremities Comments OT Bathing Comments Pt just needing assist to wash /dry her feet and back. CGA for balance with FWW while standing to do her pericare needs. M6 OT- IP Functional Cognition Start: 02/06/22 10:18 Freq: Status: Active Protocol: Document 02/07/22 11:17 [facility] (Rec: 02/07/22 11:26 [facility] [id number]) Cognitive Factors Limiting Selfcare Function Cognitive Comments Cognitive Assessment Comments Pt needing cues to follow her back precautions as trying to bend down to wash her feet and needing cues to stop and remind her of back precautions . Pt needing cues to push up on the armrest of the recliner to stand to FWW. M7 OT- IP Mobility and Balance Start: 02/06/22 10:18 Freq: Status: Active Protocol: Document 02/07/22 11:17 [facility] (Rec: 02/07/22 11:26 [facility] [id number]) OT-Transfer Assessment Sit to and From Stand Sit to and from Stand Contact Guard Assistance OT- Balance Assessment Sitting Balance and Reactions Static Sitting Balance Ability Normal Dynamic Sitting Balance Ability Good Standing Balance and Reactions Static Standing Balance Ability Fair M8 OT- IP Objective Assessments Start: 02/06/22 10:18 Freq: Status: Active Protocol: Document 02/06/22 10:18 [facility] (Rec: 02/06/22 10:35 [facility] [id number]) OT-Muscle Tone Assessment Muscle Tone WNL Yes M9 OT- IP Assessment and Plan Start: 02/06/22 10:18 Freq: Status: Active Protocol: Document 02/07/22 11:17 [facility] (Rec: 02/07/22 11:26 [facility] [id number]) OT Summary Assessment and Plan Potential Rehabilitation Potential Good Analytic Complexity at Evaluation Moderate Summary Progress Towards Goals Progressing Toward Goals Assessment Summary Pt doing a bit better today but will still benefit from skilled rehab for continued education of incorporation of back precautions for ADl and mobility needs. Goals Grooming Goal Independent Dressing Goal Independent Toileting Goal Independent Bathing Goal Independent Toilet Transfer Goal Independent Shower Transfer Goal Independent Days to Meet Goals 14 Frequency of Treatment Frequency Of Treatment Once a Day Treatment Plan OT Treatment Plan ADL Training,Functional Cognition Training,Functional Mobility,Patient/Family Education,Discharge Planning Discharge Recommendations OT Discharge Recommendations SNF Rehab Other Discharge Recommendations Pending progress , possible to go home with 24/7 asisst and home health Home Equipment Needs shower chair, BSC Transportation Needs at Discharge Private Vehicle,Wheelchair/ Cabulance
--- NOTE | 2022-02-07 11:19 | PT.IPTN ---
Current Diagnoses Other spondylosis with radiculopathy, lumbar region (02/04/22) Spinal stenosis, lumbar region with neurogenic claudication (02/04/22) Surgery Performed Operation Date: 02/04/22 09:15 Actual Procedures p L4-5, L5-S1 TLIF w. posterior instrumentation -Robot - Antonino Cherry MD Physical Therapy Treatment Note M2 PT-IP Current Condition Start: 02/05/22 12:05 Freq: NEEDED Status: Active Protocol: Document 02/05/22 11:00 [facility] (Rec: 02/05/22 12:58 AB [id number]) Physical Therapy Current Condition Current Condition Evaluation Date 02/05/22 Treatment Diagnosis s/p L4-5, L5S1 TLIF; difficulty in walking Onset Date 02/04/22 M3 PT-IP Subjective Start: 02/05/22 12:05 Freq: NEEDED Status: Active Protocol: Document 02/07/22 11:04 [place] (Rec: 02/07/22 12:51 [place] [id number]) Subjective Physical Therapy Visit Type Type Treatment Note Visit Start Time 11:04 Visit Stop Time 11:19 Total Visit Minutes 15 Number of GLUED WOOD TESTER Visits 3 Physical Therapy Visit Comments Patient Comments agreeable to do PT M4 PT-IP Mobility and Gait Start: 02/05/22 12:05 Freq: NEEDED Status: Active Protocol: Document 02/07/22 11:04 [place] (Rec: 02/07/22 12:51 [place] [id number]) PT-Bed Mobility Assessment Scooting Scooting to Edge of Bed Contact Guard Assistance PT-Transfer Assessment Sit to and From Stand Sit to and from Stand Minimal Assistance,1 Person Assistance,Use of Upper Extremities Equipment Transfer Assistive Device Gait Belt,Front Wheeled Walker Orthotic/Prosthetic Devices or Brace: No Transfers Transfer Destination Chair Transfer Technique Pt ambulated w/ FWW Transfer Ability Level of Assist Minimal Assistance,1 Person Assistance,Use of Upper Extremities Comments Mobility Comments Pt in chair upon arrival and able to recall 3/3 spinal precautions. C/o knee pain. Min A for sit<>Stand w/ FWW. Pt ambulated ~40 ft around her room very slowly w/ FWW and decreased stride and minimal ground clearance due to pain and weakness. Pt still shaky when ambulating. Upon return to chair she had 1x posterior LOB requiring Min A to recover . Pt left in chair w/ all needs in reach. Gait Assessment Gait Gait Assistance Required: Minimum Assistance,1 Person Assist Distance (Feet) 40 Able to Maintain Weight Bearing Status No During Gait Assistive Devices Assistive Device Gait Belt,Front Wheeled Walker Gait Deviations General Gait Pattern Decreased Stride Length, Decreased Feet Clearance Factors Limiting Gait Function Factors Limiting Gait Function Decreased Activity Tolerance, Decreased Sensation,Decreased Strength,Limited Range of Motion,Pain,Poor Safety Awareness Comments Gait Comments Please see mobility section for details. Stair Climbing Assessment Comments Stair Climbing Comments Did not assess. PT-Balance Assessment Sitting Balance and Reactions Static Sitting Balance Ability Good Dynamic Sitting Balance Ability Fair Standing Balance and Reactions Static Standing Balance Ability Fair Dynamic Standing Balance Ability Fair Device Used FWW M5 PT-IP Objective Assessments Start: 02/05/22 12:05 Freq: NEEDED Status: Active Protocol: Document 02/05/22 11:00 AB (Rec: 02/05/22 12:58 AB [id number]) Orientation Orientation/Cognition Level of Alertness Alert Orientation Name,Age,Situation Language Function Ability No Deficits Noted Safety Awareness Decreased Safety Awareness Memory Description Short Term Impaired Gross Range of Motion Lower Extremity ROM Assessment Within Functional Limits Strength Lower Extremity Strength Assessment Bilaterally Impaired Comments Strength Comments RLE: 3+/5 LLE: 3/5 Coordination Assessment Gross Coordination Gross Coordination WNL Sensation Assessment Sensation Gross Sensation Right LE Impaired,Left LE Impaired Sensation Description Numbness Comments Sensation Comments c/o numbness on BLE from hips down to feet Muscle Tone Muscle Tone WNL Yes M6 PT-IP Treatment Start: 02/05/22 12:05 Freq: NEEDED Status: Active Protocol: Document 02/07/22 11:04 [place] (Rec: 02/07/22 12:51 [place] [id number]) Physical Therapy Treatment Exercises Exercises Ankle Pumps Education Education Provided Precautions,Safety M7 PT-IP Assessment and Plan Start: 02/05/22 12:05 Freq: NEEDED Status: Active Protocol: Document 02/07/22 11:04 KS (Rec: 02/07/22 12:51 KS [id number]) PT Summary Assessment and Plan Potential Rehabilitation Potential Fair Summary Impairments Pain,ROM,Strength,Balance, Coordination,Sensation,Tone, Cognition,Bed Mobility, Transfers,Gait,Activity Tolerance Progress Towards Goals Slow Progress due to Pain,Slow Progress due to Medical Issues,Slow Progress due to Activity Tolerance Assessment Summary Pt still limited by knee pain, weakness, and low activity tolerance. She requires Min A for transfers and had 1x post LOB when tranferring from chair w/ FWW needing Min A to recover. At this time, pt will benefit from SNF to improve strength, activity tolerance, and functional mobility independence. Goals Bed Mobility Goal Standby Assistance Transfer Goal Standby Assistance,Front Wheeled Walker Gait Goal Standby Assistance,Front Wheel Walker Gait Distance 200 Other Goals up/down 4 steps 1 rail SBA Days to Meet Goals 5 Frequency of Treatment Frequency Of Treatment Twice a Day Treatment Plan Physical Therapy Treatment Plan Bed Mobility Training,Transfer Training,Gait Training, Therapeutic Exercise,Balance Retraining,Post Op Education, Discharge Planning,Hot or Cold Pack,Neuromuscular Re-ed, Coordination Retraining,Manual Therapy Precautions Lumbar Precautions Log Roll,No Twisting,Limit Bending,Lifting Restriction of 10 lbs,Gait Belt above Incisional Area Recommendations To Nursing Amount of Assist Needed 2 Person Assist Discharge Recommendations PT Discharge Recommendations Home with 03/02 Assist Available,Home Health,SNF Rehab Transportation Needs at Discharge Private Vehicle,Wheelchair/ Cabulance
[2022-02-07 12:00] VITALS: BP 134/68; PULSE 69; RESP 20; TEMP 37.6; O2SAT 99
[2022-02-07 12:17] LABS: COVID19 -Nasal RAPID Negative (Negative)
--- NOTE | 2022-02-07 12:27 | CM.DPNOTE ---
DC Note DC to [facility] today, patient's first SNF choice. Fernanda at [facility] explains that patient will be quarantined for 7 days because she has not been boosted; patient aware and remains agreeable to sana Perez CMA, kindly assisting with this coordination; completed and signed DC ppk has been faxed [facility] See updated and calling nurse report, w/c fab scheduled for 1330 p/u Plan: DC to [facility] today via w/c fab Perez has updated Jacki at [facility] JW
== END 2022-02-07 13:33 | DRG 455 ==
LOC: AC 07:35
PROVIDERS: Admitting Provider Orthopaedic Surgery Orthopaedic Surgery of the Spine; PCP Physician Assistant; Referring Provider Orthopaedic Surgery Orthopaedic Surgery of the Spine; Visit Provider Orthopaedic Surgery Orthopaedic Surgery of the Spine
PROC: 0SG00AJ Fusion of Lumbar Vertebral Joint with Interbody Fusion Device, Posterior Approach, Anterior Column, Open Approach (ICD-10-PCS; principal; 2022-02-04 09:15)
DX: M48.062 Spinal stenosis, lumbar region with neurogenic claudication (principal); M47.26 Other spondylosis with radiculopathy, lumbar region; M48.07 Spinal stenosis, lumbosacral region; M47.27 Other spondylosis with radiculopathy, lumbosacral region; I95.1 Orthostatic hypotension; I10 Essential (primary) hypertension; Z20.822 Contact with and (suspected) exposure to COVID-19
CPT/HCPCS: 36415; 85014; 85018; 87635; 97116; 97162; 97166; 97530; 97535; C9803; U0003; C1713; C9290; J0171; J0330; J0690; J1100; J1170; J2250; J2405; J2704